=== PATIENT | female | born 1975 | race Caucasian/White ===

== ENCOUNTER → 2022-09-19 12:58 | Outpatient (CLI) | payer OTHER, SELFPAY ==
--- NOTE | ~2022-09-19 | MM_ITS ---
EXAMINATION: MM screening roe BI w pilar HISTORY: Screening mammogram TECHNIQUE: Craniocaudal and mediolateral oblique 3-D tomosynthesis images were obtained and synthetic 2-D images were generated. Bilateral rotated lateral CC views. CAD analysis was submitted and interp reted. COMPARISON: No prior mammogram is available for comparison at this institution. BREAST PARENCHYMAL COMPOSITION: The breasts are heterogeneously dense, which may obscure small masses . FINDINGS: There is no evidence of suspicious mass, calcification, or architectural distortion to sugg est malignancy in either breast. IMPRESSION: 1. No mammographic evidence of malignancy. 2. Recommend routine screening mammography in one year. BI-RADS Category 1: Negative Reviewed, dictated and finalized at location A.
== END ==
PROVIDERS: PCP Obstetrics & Gynecology; Visit Provider Obstetrics & Gynecology
DX: Z12.31 Encounter for screening mammogram for malignant neoplasm of breast (principal)
CPT/HCPCS: 77063; 77067

== ENCOUNTER 2023-02-09 13:24 | Outpatient (CLI) | payer OTHER, SELFPAY ==
--- NOTE | ~2023-02-09 | CT_ITS ---
EXAMINATION: CT abdomen pelvis wo con DATE: 02/09/2023 14:07 INDICATION: Right flank pain. Hematuria. TECHNIQUE: Computed tomography (CT) of the abdomen and pelvis was performed without intravenous contr ast. Automated exposure control and iterative reconstruction technique were employed. The dose-length product was 189.45 mGy-cm. COMPARISON: None. FINDINGS: The visualized portions of the lung bases are clear without pneumonia or pleural effusion. The heart size is normal. No pericardial effusion. There is a 10 mm cyst in the liver. The gallbladde r, spleen, pancreas, adrenal glands are normal. There is a 4 mm stone in right kidney. There are 2 st ones in left kidney measuring up to 3 mm. There is a 2.3 cm dominant follicle in right ovary. There a re no dilated loops of bowel. The appendix is not visualized. There are no pathologically enlarged ly mph nodes. There is no free intraperitoneal fluid. There is severe lumbar spondylosis. IMPRESSION: 1. Bilateral nonobstructing kidney stones. Reviewed, dictated and finalized at location A. MANAGER
== END 2023-02-09 13:25 | disposition home or self-care (01) ==
LOC: CHSIMG 13:27
PROVIDERS: PCP Internal Medicine; Visit Provider Internal Medicine
DX: R31.9 Hematuria, unspecified (principal); R10.9 Unspecified abdominal pain; N20.0 Calculus of kidney
CPT/HCPCS: 74176

== ENCOUNTER 2023-10-01 15:13 | Outpatient (CLI) | payer OTHER, SELFPAY ==
--- NOTE | ~2023-10-01 | XR_ITS ---
XR abdomen/kub 1V Ordering provider: Magda Llanos, QC MANAGER History: . hematuria with personal hx of kidney stones . Comparison: None. FINDINGS: BOWEL: Nonobstructive bowel gas pattern. ORGANOMEGALY: None. SIGNIFICANT PATHOLOGIC CALCIFICATIONS: None. OTHER: Narrowing of the disc L4-L5. No free air is seen under the diaphragm. IMPRESSION: NO ACUTE ABDOMINAL FINDINGS. Reviewed, dictated and finalized at location A.
--- NOTE | ~2023-10-01 | US_ITS ---
US retroperitoneal comp 10/01/2023 15:43 Procedure: Realtime transabdominal ultrasound of the kidneys and bladder. Indication: Kidney stones Comparison: No prior studies for comparison. Findings: Renal echotexture is normal bilaterally without hydronephrosis, contour deforming mass. The re are nonobstructing bilateral renal stones measuring 8 mm on the right and 5 mm on the left. The ri ght kidney measures 0.6 cm and left kidney measures 10.6 cm. Bladder within normal limits. Impression: 1: Nonobstructing bilateral nephrolithiasis. Reviewed, dictated and finalized at location B. Impression: 1: Nonobstructing bilateral nephrolithiasis.
== END 2023-10-01 15:14 ==
PROVIDERS: PCP Internal Medicine; Visit Provider Nurse Practitioner Family
DX: R31.9 Hematuria, unspecified (principal); N20.0 Calculus of kidney; Z87.442 Personal history of urinary calculi
CPT/HCPCS: 74018; 76770

== ENCOUNTER 2024-02-06 13:31 | Outpatient (CLI) | payer OTHER, SELFPAY ==
--- NOTE | ~2024-02-06 | MM_ITS ---
EXAMINATION: MM screening [facility] BI w pilar HISTORY: Screening TECHNIQUE: Craniocaudal and mediolateral oblique 3-D tomosynthesis images were obtained and synthetic 2-D images were generated. CAD analysis was submitted and interpreted. COMPARISON: 09/19/2022 BREAST PARENCHYMAL COMPOSITION: Not dense: There are scattered areas of fibroglandular density. FINDINGS: There are developing asymmetries in the upper outer quadrant of the left breast. No discret e mass identified. The right breast is stable without evidence for malignancy. IMPRESSION: 1. Developing left breast asymmetries. 2. Additional mammographic views and possible breast ultrasound are recommended. BI-RADS Category 0: Incomplete: Needs additional imaging evaluation. Reviewed, dictated and finalized at location B. ONE PROCESSOR IMPRESSION: 1. Developing left breast asymmetries. 2. Additional mammographic views and possible breast ultrasound are recommended . BI-RADS Category 0: Incomplete: Needs additional imaging evaluation.
== END 2024-02-06 13:32 | disposition home or self-care (01) ==
PROVIDERS: PCP Advanced Practice Midwife; Visit Provider Advanced Practice Midwife
DX: Z12.31 Encounter for screening mammogram for malignant neoplasm of breast (principal); R92.8 Other abnormal and inconclusive findings on diagnostic imaging of breast
CPT/HCPCS: 77063; 77067

== ENCOUNTER 2024-02-15 06:46 | Emergency (ER) | payer OTHER, SELFPAY ==
[2024-02-15] VITALS (11 sets, daily range): BP systolic 96–119; BP diastolic 64–73; PULSE 70–82; RESP 18; TEMP 36.8; O2SAT 93–100
--- NOTE | ~2024-02-15 | CT_ITS ---
EXAMINATION: CT abdomen pelvis w con DATE: 02/15/2024 08:19 INDICATION: Bilateral flank pain. Hematuria. TECHNIQUE: Computed tomography (CT) of the abdomen and pelvis was performed with 100 mL Omnipaque 350 intravenous contrast. Automated exposure control and iterative reconstruction technique were employe d. The dose-length product was 287.68 mGy-cm. COMPARISON: CT abdomen pelvis 02/09/2023 FINDINGS: The visualized portions of the lung bases demonstrate mild atelectasis. No pleural effusion . The heart size is normal. No pericardial effusion. There are cysts in the liver measuring up to 12 mm. The gallbladder, spleen, pancreas, adrenal glands, and left kidney are normal. There is a [address] one in right kidney. There are no dilated loops of bowel. The appendix is not visualized. There are n o pathologically enlarged lymph nodes. There is no free intraperitoneal fluid. There is a 2.2 cm [place] follicle in right ovary. There are no pathologically enlarged lymph nodes. There is no free intr aperitoneal fluid. There is severe degenerative disc disease at L4-L5. IMPRESSION: 1. No etiology for the patient's symptoms. Reviewed, dictated and finalized at location A. CULTURAL SCIENTIST
[2024-02-15 07:10] LABS: Basophils Percent Auto 0.5 % (0.2-1.2); Eosinophils Absolute Auto 0.1 K/mm3 (0-0.3); Hematocrit 38.2 % (37.0-47.0); Hemoglobin 12.5 g/dL (12.0-15.0); Immature Granulocyte Absolute 0.01 K/mm3 (0.00-0.031); Immature Granulocyte Percent A 0.2 % (0-0.5); Lymphocytes Absolute Auto 2.19 K/mm3 (0.9-3.2); Lymphocytes Percent Auto 33.4 % (18.3-44.2); Mean Corpuscular HGB Conc 32.7 g/dl (32-36); Mean Corpuscular Volume 94.8 fl (80-100); Mean Platelet Volume 10.2 fl (7.4-10.4); Monocytes Absolute Auto 0.5 K/mm3 (0.1-0.6); Monocytes Percent Auto 7.9 % (2.6-8.5); Neutrophils Absolute Auto 3.7 K/mm3 (1.3-6.7); Platelet Count Result 217 k/mm3 (150-375); Red Blood Count 4.03 M/mm3 (4.2-5.4); Red Cell Distribution Width 12.5 % (11.5-14.5); White Blood Count 6.6 K/mm3 (4.5-10.0)
[2024-02-15 07:21] LABS: Alanine Aminotransferase 19 U/L (6-35); Albumin Level 4.5 g/dL (3.5-5.1); Alkaline Phosphatase 69 U/L (38-126); Anion Gap 5 mmol/L (4-12); Aspartate Amino Transferase 25 U/L (14-36); Bilirubin,Total 0.4 mg/dL (0.2-1.3); Blood Urea Nitrogen 19 mg/dL (7-17); Carbon Dioxide 30 mmol/L (22-30); Chloride 106 mmol/L (98-107); Estimated CRCL calculation 75 ml/min; Estimated Glomerular Filt Rate > 60; Glucose 92 mg/dL (65-110); Lipase 141 U/L (23-300); Sodium 141 mmol/L (137-145)
[2024-02-15 07:27] LABS: Add Urine Microscopic? YES; Appearance Urine Clear (Clear); Bacteria Urine None Seen /hpf; Bilirubin Urine Negative (Negative); Blood Urine 1+ (Negative); Color Urine Yellow (Yellow); Glucose Urine UA Negative (Negative); Ketones Urine Negative (Negative); Leukocyte Esterase Ur 1+ LEU/UL (Negative); Need Manual Microscopic Reviewed; Nitrate Urine Negative (Negative); Non Pathogenic Casts 0-2; Protein Urine Negative (Negative); RBC Urine 0-2 /hpf (0-2); Specific Grav Ur 1.006 (1.001-1.035); Squamous Epithelial Cell Urine None Seen /hpf (Few); Urobilinogen Urine 0.2 mg/dL (<2.0)
--- NOTE | 2024-02-15 07:53 | ED_ITS ---
HPI - Abdominal Pain General Chief Complaint: Abdominal Pain Stated Complaint: i think i have kidney stones Time Seen by Provider: 02/15/24 07:51 Source: patient and family () Mode of arrival: ambulatory Limitations: no limitations History of Present Illness HPI narrative: Patient presents with bilateral flank pain of 3 days duration although right greater than left. She notes that the pain radiates into her abdomen towards her groin. The pain is occurring intermittently. She is concerned that she laxmi ht be having an issue with kidney stones that she had imaging previously that showed she had them present. In general, she states that she hurts all over. She was urine nauseated earlier when she was brushing her teeth although states that this resolved quickly. No vomiting. No fevers although she does have chills. Her last bowel movement was this morning and she notes that was loose but formed. No constipation or blood. She is amenorrheic as she had a hysterectomy with oophorectomy (unknown which side) 2017. She has been taking p.o. ketorolac for pain and she took a dose of this Sunday morning, evening, and this morning. She endorses dysuria, urgency, and frequency but denies any mariela/gross hematuria. PCP Dr Childs in [place]. Related Data Home Medications Medication Instructions Recorded Confirmed Saccharomyces boulardii 250 mg 250 mg PO BID 06/24/21 09/01/21 capsule (Daily Probiotic (S. boulardii)) fluticasone propionate 50 1 spray intranasal BID 06/24/21 09/01/21 mcg/actuation nasal spray,suspension levocetirizine 5 mg tablet (Xyzal) 5 mg PO DAILY 06/24/21 09/01/21 Allergies Allergy/AdvReac Type Severity Reaction Status Date / Time No Known Allergies Allergy Verified 09/01/21 10:59 [facility] Past Medical History Medical History (Updated 02/15/24 @ 10:18 by Kristine Elliott MD) Seasonal allergies Surgical History Surgical History H/O section H/O hysterectomy with oophorectomy 2017 Family History Family History Father Parkinsons disease Malignant neoplasm of prostate Grandparent Diabetes mellitus Depression Mother Endometrial cancer Cervical cancer Social History Social History (Updated 02/15/24 @ 10:23 by Kristine Elliott MD) Smoking status: Never smoker Alcohol intake: never Substance use: never Living arrangements: with family Additional living arrangements comments: Occupation/Education: occupation 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 HEAD: Normocephalic, atraumatic. EYES: Non injected, non icteric ENT: Nares clear, no rhinorrhea or epistaxis. NECK: Supple. CHEST: Speaking in full sentences. No respiratory distress. HEART: Regular rate and rhythm. . ABDOMEN: Soft, nondistended. No tenderness to palpation x4 quadrants. No rigidity or guarding. Not peritoneal. EXTREMITIES: Normal range of motion. No lower extremity edema. : Suprapubic tenderness to palpation. Mild CVA tenderness on the right. SKIN: Warm, dry, no rash. NEURO: No focal deficits. Alert and oriented x3. PSYCH: Normal mood and affect. Course Vital Signs Vital signs: Vital Signs Temperature 98.2 F 02/15/24 06:55 Pulse Rate 70 02/15/24 06:55 Respiratory Rate 18 02/15/24 06:55 Blood Pressure 119/67 02/15/24 06:55 Pulse Oximetry 100 02/15/24 06:55 Oxygen Delivery Room Air 02/15/24 06:55 Temperature 98.2 F 02/15/24 06:55 Pulse Rate 82 02/15/24 09:30 Respiratory Rate 18 02/15/24 09:30 Blood Pressure 96/64 L 02/15/24 09:30 Pulse Oximetry 100 02/15/24 09:30 Oxygen Delivery Room Air 02/15/24 06:55 MDM - Abdominal Pain MDM Narrative Medical decision making narrative: Patient presents with flank pain of 3 days duration radiating into her abdomen and groin. In the emergency department they are afebrile with vital signs within normal limits. Urinalysis with hematuria although no other signs of infection. However She has suprapubic tenderness to palpation and right CVA tenderness on exam and endorses dysuria, urgency, and frequency. Patient reassessed at approximately 10:20 a.m. and she states she is feeling much better with pain improved. No evidence of stone in the ureter seen on imaging although there is 1 that is nonobstructing in the right kidney. Given constellation of symptoms, physical exam, and labs, reasonable to treat as pyelonephritis despite no bacteriuria. Patient given 1st dose of antibiotic in the emergency department with the rest of the course prescribed. She is advised follow-up with primary care physician and return to the emergency department with any new or worsening symptoms. Also prescribed acetaminophen which she can supplement with the ketorolac she is already taking. Differential Diagnosis Differential diagnosis: Likely abdominal pain, calculus of kidney, di verticulitis, endometriosis and other (Urinary tract infection, pyelonephritis) Medical Records Attestation: I reviewed the patient's medical records. Medical records narrative: Previous imaging showed bilateral nonobstructing renal calculi Lab Data Attestation: I reviewed the patient's lab results. 02/15/24 07:04 02/15/24 07:04 Labs: Lab Results 02/15/24 Range/Units 07:04 WBC 6.6 (4.5-10.0) K/mm3 RBC 4.03 L (4.2-5.4) M/mm3 Hgb 12.5 (12.0-15.0) g/dL Hct 38.2 (37.0-47.0) % MCV 94.8 (80-100) fl MCH 31.0 (26-34) pg MCHC 32.7 (32-36) g/dl RDW 12.5 (11.5-14.5) % Plt Count 217 (150-375) k/mm3 MPV 10.2 (7.4-10.4) fl Immature Gran % (Auto) 0.2 (0-0.5) % Neut % (Auto) 56.0 (45.5-73.1) % Lymph % (Auto) 33.4 (18.3-44.2) % [place] % (Auto) 7.9 (2.6-8.5) % Eos % (Auto) 2.0 (0-4.4) % Baso % (Auto) 0.5 (0.2-1.2) % Lymph # (Auto) 2.19 (0.9-3.2) K/mm3 [place] # (Auto) 0.5 (0.1-0.6) K/mm3 Eos # (Auto) 0.1 (0-0.3) K/mm3 Baso # (Auto) 0.0 (0.0-0.1) K/mm3 Abs Immat Gran (auto) 0.01 (0.00-0.031) K/mm3 Absolute Neuts (auto) 3.7 (1.3-6.7) K/mm3 Absolute Nucleated RBC 0.000 (0.0-0.012) K/mm3 Nucleated RBC % 0.0 (0.0-0.2) % Sodium 141 (137-145) mmol/L Potassium 4.0 (3.4-5.0) mmol/L Chloride 106 (98-107) mmol/L Carbon Dioxide 30 (22-30) mmol/L Anion Gap 5 (4-12) mmol/L BUN 19 H (7-17) mg/dL Creatinine 0.70 (0.7-1.0) mg/dL Estim Creat Clear Calc 75 ml/min Estimated GFR > 60 (59 - ) Glucose 92 (65-110) mg/dL Calcium 9.0 (8.4-10.2) mg/dL Total Bilirubin 0.4 (0.2-1.3) mg/dL AST 25 (14-36) U/L ALT 19 (6-35) U/L Alkaline Phosphatase 69 (38-126) U/L Total Protein 8.0 (6.3-8.2) g/dL Albumin 4.5 (3.5-5.1) g/dL Lipase 141 (23-300) U/L Urine Color Yellow (Yellow) Urine Appearance Clear (Clear) Urine pH 6.0 (5.0-9.0) Ur Specific [place] 1.006 (1.001-1.035) Urine Protein Negative (Negative) mg/dL Urine Glucose (UA) Negative (Negative) mg/dL Urine Ketones Negative (Negative) mg/dL Ur Blood (Man) 1+ H (Negative) Urine Nitrate Negative (Negative) Urine Bilirubin Negative (Negative) Urine Urobilinogen 0.2 (<2.0) mg/dL Add Ur Microanalysis Reviewed Leukocyte Esterase Rfl 1+ H (Negative) SUELLEN/UL Urine RBC 0-2 (0-2) /hpf Urine WBC 11-20 H (0-3) /hpf Ur Squamous Epith Cells None seen (Few) /hpf Urine Bacteria None seen /hpf Urine Casts 0-2 Imaging Data Radiologist's impression: ITS Impressions Abdomen/Pelvis CT 02/15/24 08:52 IMPRESSION: 1. No etiology for the patient's symptoms. Discharge Plan Discharge Clinical Impression: Flank pain, Microscopic hematuria, Symptomatic urinary tract infection Patient Disposition: Home, Self-Care Condition: Stable Instructions: Antibiotic Form, Urinary Tract Infection in Women (DC), Kidney Infection (ED), Flank Pain (ED) Additional Instructions: There is a 4 mm stone in right kidney but , as we discussed, this usually doesn't cause greco based on the location. Given you are having symptoms consistent with urinary tract infection and had some tenderness with palpation of the bladder and with percussing/tapping on your right kidney, reasonable to treat for urinary tract infection that has ascended to your kidney known as pyelonephritis/kidney infection. You received your 1st dose of antibiotic in the emergency department with the rest of the course prescribed. You will be notified if based on the urine culture this antibiotic regimen needs to be changed. You can continue to use the ketorolac your prescribed previously and this is safe to take with acetaminophen/Tylenol (maximum 4000mg/day of the latter). Follow-up with your primary care physician. Return to the emergency department any new or worsening symptoms such as intractable nausea/vomiting, intractable pain not responding to the medications prescribed, fever >100.4F, etc. Prescriptions: New sulfamethoxazole-trimethoprim 800-160 mg tablet 1 tablet PO Q12H 14 Days Qty: 27 0RF Rx Instructions: start 12/6 PM (received first dose in ED 126 AM) acetaminophen 500 mg capsule 1,000 mg PO Q6H PRN (Reason: pain) Qty: 20 0RF acetaminophen 500 mg capsule 1,000 mg PO Q6H PRN (Reason: pain) Qty: 30 0RF sulfamethoxazole-trimethoprim [Bactrim DS] 800-160 mg tablet 1 tablet PO Q12H 14 Days Qty: 27 0RF Rx Instructions: Received 1st dose in the emergency department 02/15/2024 a.m. No Action levocetirizine [Xyzal] 5 mg tablet 5 mg PO DAILY Saccharomyces boulardii [Daily Probiotic (S. boulardii)] 250 mg capsule 250 mg PO BID fluticasone propionate 50 mcg/actuation spray,suspension 1 spray intranasal BID Rx Instructions: administer into each nostril methylprednisolone [Medrol (Chad)] 4 mg tablets,dose pack See Rx Instructions PO PER PKG DIR Qty: 21 0RF Rx Instructions: PO PER PKG DIR Follow-up/Referrals: Teresa,Jolene Osborn CNM [Primary Care Provider] - Stand Alone Forms: Work/School Release IP Time of Disposition: 10:26
[2024-02-15] MEDS: MORPHINE SULFATE (*CRX) 4 MG/ML INJ IV PUSH (08:26)
[2024-02-15] MEDS: SULFAMETHOXAZOLE/TRIMETHOPRIM 800/160 MG DS TABLET 1 TAB PO (10:33)
== END 2024-02-15 12:13 | disposition home or self-care (01) ==
PROVIDERS: Emergency Medicine; Emergency Provider Student in an Organized Health Care Education/Training Program; PCP Advanced Practice Midwife
DX: R10.9 Unspecified abdominal pain (principal); R31.29 Other microscopic hematuria; N39.0 Urinary tract infection, site not specified; Z90.710 Acquired absence of both cervix and uterus
CPT/HCPCS: 36415; 74177; 80053; 81001; 83690; 85025; 87086; 96374; 99284; A9270; J2270; Q9967

== ENCOUNTER 2024-06-11 08:06 | Outpatient (CLI) | payer OTHER, SELFPAY ==
--- OUTSIDE RECORDS SUMMARY | 2024-06-11 08:24 | XMS_ITS | Data Portability ---
Author Organization [employer] Your Policy ManagerAngelica in Office Address [address] [place] [address] Assessment Encounter Date Assessment Date Assessment LastModified by Organization Details LastModified Time 04/23/2024 04/23/2024 I spent 43 minutes of bils-ov-uhvv counselling and care coordination time with the patient. This includes reviewing medical records (medical, surgical, family and social history); updating medication and allergy information in the electronic health record; and ordering labs, medications, and education materials to continue patient care. [email or web address] Not available 04/23/2024 15:52:50 05/21/2024 05/21/2024 I spent 21 minutes of nqke-cw-xqgm counselling and care coordination time with the patient. This includes reviewing medical records (medical, surgical, family and social history); updating medication and allergy information in the electronic health record; and ordering labs, medications, and education materials to continue patient care. Not available 05/21/2024 15:51:50 06/09/2024 06/09/2024 I spent 38 minutes of dlfi-jv-shgx counselling and care coordination time with the patient. This includes reviewing medical records (medical, surgical, family and social history); updating medication and allergy information in the electronic health record; and ordering labs, medications, and education materials to continue patient care. Not available 06/09/2024 11:39:58 Plan of Treatment Reminders Order Date Submit Date Provider Last Modified By Organization Details Last Modified Time Details Appointments [id number] 2024 07:30A M NESTOR CLAYTON NP Not available Not available Not available Lab FSH (follicle -stimulat ing hormone), serum 2024 025 [facility] (Lab), [address] [place], [address], 06/09/2024 11:40:45 estradiol , serum 2024 025 [facility] (Lab), [address] [place], [address], 06/09/2024 11:40:45 anti-mark erian hormone (amh), serum 2024 025 [facility] (Lab), [address] [place], [address], 06/09/2024 11:40:45 vitamin D, 25-hydrox y, total, serum 2024 [facility] (Lab), [address] [place], [address], 06/09/2024 11:40:45 iron + TIBC + ferritin, serum 2024 025 [facility] (Lab), [address] [place], [address], 06/09/2024 11:40:44 TSH + free T4, serum 2024 025 [facility] (Lab), [address] [place], [address], 06/09/2024 11:40:44 CBC w/ auto diff 2024 025 [facility] (Lab), [address] [place], [address], 06/09/2024 11:40:45 CMP, serum or plasma 2024 025 [facility] (Lab), [address] [place], [address], 06/09/2024 11:40:45 urinalysi s complete, reflex culture 2024 025 [facility] (Lab), [address] [place], [address], 06/09/2024 11:40:45 Referral None recorded. Procedures None recorded. Surgeries None recorded. Imaging None recorded. Medication Orders Magnesium Glycinate MIDI 2024 025 [email or web address] Not available 06/09/2024 15:21:15 estradiol 0.025 mg/24 hr semiweekl y transderm al patch 2024 025 [facility] #[id number], [address] [place], [address], 04/23/2024 15:34:28 Patient TargetsNo targets recorded. Patient Instructions Encounter Date Encounter Id Patient Instructions Last Modified By Organization Details Last Modified Time 04/23/2024 [id number] Any requested follow-up visits are listed below in the Plan of Care section. Go directly to the [facility] stage set designer at [email or web address] to book a time. Not available 04/23/2024 10:28:32 It was a pleasur e to meet with you today! We discussed your health concerns related to menopause, including brain fog, weight gain, mild hot flashes, mood changes, and difficulty sleeping. --------- Your Care Plan --------- Together, we decided that you would: - Start using an estrogen patch (0.025) on your lower abdomen, changing it twice a week. This is a bioidentical hormone replacement therapy that should help alleviate your menopausal symptoms. The patch is small and should be applied to your lower abdomen. It is absorbed directly into the bloodstream and has been shown in studies to not increase the risk of blood clotting in the general population. - Continue drinking 100 ounces of water every day. This will help with brain fog and also prevent kidney stones from forming. - Aim for 30 minutes of movement each day. Exercise is beneficial for overall health and can help improve brain fog. - Follow-up appointment scheduled for May 21 at 2:30 pm. We will review your progress and adjust treatment as needed. - Breast tenderness, headaches, nausea, vaginal bleeding, and lightheadedness are potential side effects of the estrogen patch and while they are usually non-concerning and go away as your body adjusts to the hormones, it's important to monitor them. - If your symptoms worsen or do not improve, please return to the clinic or seek immediate medical attention. - Please contact your clinician if you have any questions, concerns, worsening or unexpected symptoms by using the patient portal. Please carefully review the care plan we have decided upon, specific information regarding your medication, and important details about your treatment detailed above. HRT Today we reviewed options for treating common symptoms of menopause. These options include hormonal medications, non hormonal medications, integrative therapies and lifestyle modifications. Menopause symptoms vary from woman to woman. Some women get no symptoms, but others have many. Intensity and duration also vary and can last on average 5-10 years. HRT may help with many menopausal symptoms. It is FDA approved for the treatment of hot flashes, vaginal symptoms, osteoporosis, and for those in early or premature menopause. HRT is associated with relief of symptoms and improvement in bone health. When started close to the age of menopause, HRT reduces cardiovascular risk and has potential benefits for cognitive health. Here are the latest recommendations from the Menopause Society: https://menopause.o rg/patient-educatio n/menopause-topics/ hormone-therapy Hormone therapy most often involves the combination of estrogen and progestogen. As with any drug there are some potential risks associated with hormone therapy. There are concerns of associated health risks with HRT including risks related to breast cancer, uterine cancer, gallbladder disease, and dementia. Many of these concerns are related to older types of hormones that are no longer recommended today and some of these concerns differ depending on the component of hormones (i.e., estrogen vs progestogen) and the mode of delivery. Some studies have suggested that some types of HRT may increase the risk of heart attack, stroke, and blood clots. If you develop chest pain, difficulty breathing, or symptoms suggestive of a stroke please seek care immediately. Today we reviewed your personal history including specific risks and benefits of hormone therapy for you. Based on this shared decision making, we recommend HRT to you as a reasonable and helpful therapy. If you have additional questions related to health risks associated with HRT, please discuss with your clinician. Please know that HRT requires fine-tuning and an individualized approach. We ll plan to adjust your therapy if needed to address your symptoms. We will meet in 4-6 weeks to check in about your new regimen. Please reach out if you need to meet sooner. Thank you for trusting us with your care! Kindly, Ayla Clayton APRN Not available 04/23/2024 15:57:54 05/21/2024 [id number] Any requested follow-up visits are listed below in the Plan of Care section. Go directly to the [employer] stage set designer at [email or web address] to book a time. Not available 05/20/2024 12:56:42 It was a pleasur e to see you again today, Trudy! We discussed your health concerns related to menopause, including hot flashes, night sweats, and sleep disturbances. --------- Your Care Plan --------- Together, we decided that you would: - Continue using the estradiol patch. You've reported some improvement in your symptoms, which is great news. Remember, it can take up to three months to experience full relief. We started you on the lowest dose to minimize side effects, and we can always increase it if needed for further symptom relief. Please continue to monitor for side effects such as breast tenderness, headaches, nausea, and lightheadedness. If these persist or worsen, please let me know. - Keep a symptom diary. Pay close attention to the hot flashes, night sweats, mood swings, and lightheadedness. This will help us understand how your symptoms are progressing and whether we need to adjust your treatment. - Schedule a follow-up appointment on Sunday, July 16 at 2:30 PM. We will review your symptom diary and decide whether to adjust the dosage of your estradiol patch. - Plan to have your annual blood work done with your primary care provider this summer. This is important to ensure we're not overlooking any other conditions, such as hypothyroidism or high cholesterol. -Upload your pathology report related to hysterectomy to the portal for further review. Please carefully review the care plan we have decided upon, specific information regarding your medication, and important details about your treatment detailed above. Thank you for trusting us with your care! Kindly, Ayla Clayton APRN Not available 05/21/2024 15:53:09 06/09/2024 [id number] Any requested follow-up visits are listed below in the Plan of Care section. Go directly to the [employer] stage set designer at [email or web address] to book a time. Not available 06/09/2024 08:37:33 It was a pleasur e to meet with you today! We discussed your recent experiences with severe stress, anxiety, and potential hormonal imbalances. You mentioned that you have been on estradiol and recently started fluoxetine (Prozac) 20 mg, but have been experiencing significant mood disturbances, sleep issues, and physical symptoms such as night sweats and hot flashes. You also have a history of trauma and are currently in a high-stress work environment. --------- Your Care Plan --------- Together, we decided that you would: - Obtain a copy of your recent lab results from your primary care physician and upload them to the patient portal. - Obtain a copy of your hysterectomy pathology report and upload it to the patient portal. - Continue taking fluoxetine (Prozac) 20 mg daily as prescribed by your primary care physician. - Schedule and attend a follow-up appointment on July 14 at 9:30 AM to review lab results and assess your progress on fluoxetine. - Consider natural supplements such as high doses of omega-3 with more EPA than DHA, and magnesium glycinate at night before bed to support mood and sleep. - Recommendations will be sent to you via [employer]. - [facility] to address stress and anxiety. - Read The Worry Trick by a [place] psychologist to help manage intrusive thoughts and anxiety. - I will contact Dr. Baron's office at [phone] and speak with Khalida, his nurse, to inform them of your current situation regarding perimenopause. - Go to [facility] in [place], [place], to have the following blood work drawn: Thyroid panel, Vitamin D, Vitamin B, and hormone levels. - Consider trying a higher dose of the estradiol patch in the future if symptoms persist, but only after discussing it with your clinician and feeling comfortable with the decision. - Stay hydrated and manage stress to help prevent kidney stones. - Contact your clinician if you have any questions, concerns, worsening or unexpected symptoms by using the patient portal. Please carefully review the care plan we have decided upon, specific information regarding your medication, and important details about your treatment detailed below. Magnesium: - Supplementation with magnesium may help with sleep, muscle tension, constipation, and blood pressure. - Start with 1-2 capsules, as directed by clinician, 30-60 min prior to bedtime. - Get it through [facility], our partner pharmacy. Look out for an email to buy your expert recommended product in a few clicks. Yampa 3s (fish oil): - Helpful for mood support.1000 mg of EPA daily take 2 caps by mouth daily. - Get it through [facility], our partner pharmacy. Look out for an email to buy your expert recommended product in a few clicks. - Take with food (ideally a healthy fat) for better absorption. Thank you for trusting us with your care! Kindly, Ayla Clayton APRN Not available 06/09/2024 11:50:47 Reason for Referral None Reported. Problems Name Problem SNOMED Code Status Onset Date Resolution Date Notes Provider Name and Address Organization Details Recorded Time History of calculus of kidney 308821453 Active 2024 [place] [address] [place], [address], [facility] 5 10:29:03 Hyperlipid emia 37449921 Active 2024 [place] [address] [place], [address], [facility] 5 10:29:08 Oophorecto my Active 2024, Right oophorecto my due to ovarian mass , NEGATIVE pathology per patient, pt stated pathology report [place] [address] [place], [address], [facility] 5 11:39:26 Hysterecto my Active 2024 2019, hyst due to mass / pt only has LEFT ovary , NEGATIVE pathology per patient. Pathology [place] [address] [place], [address], [facility] 5 11:39:06 Clouded consciousn ess 91604108 Active 2024 [place] [address] [place], [address], [facility] 5 15:27:58 Menopausal symptom 78518484 Active 2024 [place] [address] [place], [address], [facility] 5 15:33:24 Hyperchole sterolemia 15387666 Active 2024 [place] [address] [place], [address], [facility] 5 15:39:10 Vitamin D deficiency 24477665 Active 2024 [place] [address] [place], [address], [facility] 5 09:33:54 Anxiety 58613038 Active 2024 [place] [address] [address] [place], [address] [place] [address] 2, [facility] 5 09:41:11 Sleep pattern disturbanc e 99689744 Active 2024 [place] [address] [place] [address], [facility] 5 11:32:50 Notes:Pt stated [facility] RIDER retir ed, will try to gain access to previous pathology report. Problem Notes None recorded. Procedures Surgical History Date Name Laterality Status Provider Name and Address Organization Details Recorded Time 4 Date of Last Mammogram [place], [address], [facility] 04/23/2024 15:04:35 4 Date of Last Pap Smear [place], [address], [facility] 04/23/2024 15:04:35 0 Date of Last Colonoscopy [place], [address], [facility] 04/23/2024 15:04:35 delivery [place], [address], [facility] 04/23/2024 15:06:13 lithotripsy [place], [address], [facility] 04/23/2024 15:08:33 Imaging Results None recorded. Procedure Notes None recorded. Medical Equipment None Reported. Allergies Allergen ID Allergen Name Allergen Category Reaction Reaction Severity Criticality Documentation Date Start Date Code Code System Note Provider Name and Address Organization Details Recorded Time 050914 house dust allergeni c extract environme nt,medica tion Not available Not available Not available 04/23/2024 30403 9 RxNorm Not Available Not Available Not Available 900830 ragweed pollen environme nt Not available Not available Not available 04/23/2024 04826 UNK Not Available Not Available Not Available 845344 mold extract environme nt Not available Not available Not available 04/23/2024 82104 8 RxNorm Not Available Not Available Not Available Medications Name Sig Start Date Stop Date Status Note LastModified by Organization Details LastModified Time Magnesium Glycinate MIDI Order through [employer] 2024 active Not Available Not Available Not Avai lable estradiol 0.025 mg/24 hr semiweekly transdermal patch Apply 1 patch twice a week by transdermal route. 2024 active Not Available Not Available Not Avai lable nutritional supplements active Not Available Not Available Not Available fluoxetine 20 mg once daily per PCP active Not Available Not Available No t Available Xyzal active Not Available Not Availa ble Not Available Vitals Date Recorded Body height Body mass index (BMI) Body weight Provider Name and Address Organization Details Last Updated DateTime 04/23/2024 167.64 cm 24.4 kg/m2 40130.45 [place] [address] [place], [address], [facility] 04/23/2024 10:28:45 Social History None recorded. Functional Status None recorded. Mental Status None recorded. Family History Relationship Description Onset Age of this Age Resolved Age Notes LastModified by Organization Details LastModified Time Maternal Grandmother Malignant tumor of breast 70 Not available 04/23 15:10:09 Maternal Grandfather Heart disease Not available 04/23 15:04:23 Paternal Grandfather Heart disease Not available 04/23 15:04:23 Mother Malignant tumor of vagina 44 44 Not available 04/23 15:10:36 Father Parkinson's disease 76 [id number] Not available 2024 08:36:22 Father Dementia [id number] Not available 06/09/2024 08:36:22 Medical History No medical history recorded. Gynecological History Statement/Question Response Date of Last Mammogram 12/11/2023 Date of Last Colonoscopy 09/10/2019 Date of LMP 01/10/2019 Date of Last Pap Smear 09/09/2023 Current Control Method Hysterectom y Approximate Hormone Replacement Therapy Yes Obstetrics History GPAL:G 2 P 0 0 0 2 Type Value Living 2 Total 2 Past Encounters Encounter ID Performer Location Encounter Start Date Encounter Closed Date Diagnosis/Indication Diagnosis SNOMED-CT Code Diagnosis ICD10 Code Diagnosis Note [id number] NESTOR CLAYTON NP Main Office [address] [place] [address] 04/23/2024 14:19:20 04/25/2024 04:25:41 Menopausal symptom 96456955 N95.1 - Patient experienci ng weight gain, mild hot flashes, mood changes, and difficulty sleeping.- Symptoms began post-hyste rectomy and have worsened over the past year.- Educated patient on hormone replacemen t therapy (HRT) with bioidentic al estrogen patches. History of hyst no need for endometria l protection .- Discussed the safety and efficacy of transderma l estrogen, emphasizin g no increased risk of breast cancer with estrogen alone.- Initiated estradiol patch 0.025 mg twice weekly, to be applied to the lower abdomen.- Advised on potential side effects: breast tenderness , headaches, nausea, vaginal bleeding, and lightheade dness.- Recommende d supportive measures: 100 ounces of water daily, vitamin B-complex, omega-3 supplement s, and regular exercise.- Follow-up scheduled in 4 weeks on May 21 at 2:30 PM to assess symptom relief and potential dose adjustment . HRTThe patient is experienci ng significan t symptoms related to hormonal changes that impact their quality of life and ability to function profession ally and/or personally . We reviewed lifestyle modificati ons, integrativ e therapies, hormonal options as well as other medication s used to treat common menopausal symptoms. Pt was informed that, as with any drug, there are some potential risks associated with HRT. We discussed that some types of HRT may increase the risk of heart attack, stroke, and blood clots. Patient is counseled on concerning signs and symptoms and instructed to immediatel y seek care if these develop. We discussed potential health risks that may be associated with HRT including risks related to breast cancer, uterine cancer, gallbladde r disease, dementia and others. Many of these concerns are related to older types of hormones that are no longer recommende d today and some of these concerns differ depending on the component of hormones (estrogen vs progestero ne) and the mode of delivery. After review of the potential benefits of HRT, the alternativ es and the risks of therapy this patient prefers a trial of HRT. Based on this shared decision making HRT therapy will be offered. Clouded consciousness 40 326631 R41.0 - Patient reports brain fog and decreased cognitive function, exacerbate d by poor sleep and high stress levels.- Educated on the relationsh ip between sleep quality and cognitive function.- Recommende d lifestyle modificati ons: increased water intake, regular exercise, stress management techniques (meditatio n, spending time with family, nature walks).- Initiated estradiol patch therapy to improve sleep and cognitive function.- Advised on the potential benefits of vitamin B-complex and omega-3 supplement s for cognitive support.- Follow-up in 4 weeks to evaluate improvemen t in cognitive symptoms. Health edu cation given 675750500 Z71.9 - Provided comprehens doe education on hormone replacemen t therapy, including risks, benefits, and side effects.- Discussed the importance of hydration, exercise, and nutritiona l supplement s in managing menopausal symptoms and cognitive function.- Educated on the safety of bioidentic al hormones and the lack of increased breast cancer risk with estrogen alone.- Patient expressed understand ing and agreement with the treatment plan.- Scheduled follow-up appointmen t for May 21 at 2:30 PM to reassess symptoms and treatment efficacy. History of hysterectomy [id number] Z90.711 - Patient had a hysterecto my in 2019 due to a benign mass, with the left ovary remaining intact.- No history of pre-cancer ous or cancerous pathology. - Reviewed patient's surgical history and confirmed no contraindi cations to hormone therapy.- Continued monitoring for any new symptoms or complicati ons related to the hysterecto my. [id number] NESTOR CLAYTON NP Main Office [address] [place] [address] 05/21/2024 14:45:29 05/22/2024 04:15:02 Health education given [id number] Z71.9 - Educated patient on the potential side effects of estradiol, including lightheade dness.- Discussed the importance of monitoring symptoms and side effects through a symptom diary.- Emphasized the need for regular follow-up to assess the effectiven ess of the treatment and make necessary adjustment s.- Patient understand s and agrees with the treatment plan. Menopausal symptom 81006 002 N95.1 - Patient reports improvemen t in night sweats and hot flashes since starting estradiol patch, with symptoms being less intense and less frequent.- No breast tenderness , headaches, or nausea reported. However, patient experience s lightheade dness, which is a known side effect of estradiol. - Educated patient that full relief may take up to three months and that the current low dose helps minimize side effects.- Advised patient to keep a symptom diary to monitor hot flashes, night sweats, mood swings, and lightheade dness.- [facility] at 2:30 PM to reassess symptoms and decide on potential titration of estradiol patch. History of hysterectomy [id number] Z90.711 - No current issues related to the hysterecto my reported.- Advised patient to upload any available pathology reports for review.- No history of pre-cancer ous or cancerous pathology. - Reviewed patient's surgical history and confirmed no contraindi cations to hormone therapy.- Continued monitoring for any new symptoms or complicati ons related to the hysterecto my. Hypercholesterolemia 136 35204 E78.00 - Patient has a history of hyperchole sterolemia , managed with lifestyle modificati ons.- No current medication for hyperchole sterolemia as per patient's preference and primary care physician' s guidance.- Discussed the importance of regular monitoring and management of cholestero l levels.- Patient plans to have annual blood work done with primary care physician in the summer. [id number] NESTOR CLAYTON NP Main Office [address] [place] [address] 06/09/2024 08:36:21 06/10/2024 04:13:23 Menopausal symptom [id number] N95.1 - Experienci ng exacerbate d mood changes, hot flashes, and night sweats while on low-dose transderma l estradiol; symptoms improved after discontinu ing the patch.- Ordered labs including hormone panel to establish current levels post-patch removal.- No hormone therapy at present; may consider higher-dos e transderma l estradiol or herbal alternativ es (Siberian rhubarb) Estrovera if future symptoms warrant.- Recommende d magnesium glycinate at bedtime and high-EPA omega-3 supplement ation as supportive measures. Yampa-3 recommenda tion sent merry FullScript .- Scheduled follow-up in [place] [address] 6 weeks to review labs and clinical status. Vitamin D deficiency [id number] E55.9 - Will measure serum vitamin D through [facility] in [place], [place].- Will determine need for supplement ation after reviewing lab results. Anxiety [id number] F41.9 - Currently on fluoxetine 20 mg daily; therapy initiated 10 days ago.- Reports improved mood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
--- OUTSIDE RECORDS SUMMARY | 2024-06-11 08:24 | XMS_ITS | Encounter Summary ---
Author Organization [facility] Address [facility] [place] [address] Care Team Providers Care Spline Rolling Machine Job Setter Name Role Phone Erlinda Alvarado NP Primary Care Provider [phone] ChaneyNiesha Unavailable [phone] Raul Cary MD Primary Care Provider Emerald vailable None, Provider Primary Care Provider Unavaila Mynor Marshall MD Primary Care Provider [phone] Encounter Details Date Type Department Care Team (Late st Contact Info) Description 02/13/2020 Wongat Message Enc [facility] Family Medicine - [place] [address] [place] [address] Erlinda Alvarado, LIEUTENANT/DEPUTY [address] [address] RE: Test Results Social History Tobacco Use Types Packs/Day Years Used Date Smoking Tobacco: Never Smokeless Tobacco: Never Alcohol Use Standard Drinks/Week Comments Yes 1.7 (1 standard drink = 0.6 oz p ure alcohol) socially AUDIT-C Answer Date Recorded Frequency of Alcohol Consumption Monthly or less 09/09/2019 Average Number of Drinks Not on file 020 Frequency of Binge Drinking Not on file 08/12 PHQ-2 Answer Date Recorded PHQ-2 Score - If the patient scores above 3, please move on to questions 3-9 0 09/09/2019 Comments No Sex and Gender Information Value Date Recorded Sex Assigned at Female 06/10/2024 9:09 AM CDT Legal Sex Female 7:01 PM CDT Gender Identity Female 06/10/2024 9:09 AM CDT Sexual Orientation Not on file COVID-19 Exposure Response Date Recorded In the last month, have you been in contact with someone who was confirmed or suspected to have Coronavirus / COVID-19? Yes 01/23/2020 1:42 PM DEPUTY [place] MARSH[place] documented as of this encounter Plan of Treatment Upcoming Encounters Date Type Department Care Team (Late st Contact Info) Description 07/02/2024 9:40 AM CDT Office Visit [facility] Urology - [place] [address] [place] [address] Yesika Monae MD [address] [place] [address] documented as of this encounter Visit Diagnoses Not on filedocumented in this encounter Care Teams Spline Rolling Machine Job Setter Relationship Specialty Start Date End Date Erlinda Alvarado NP PCP - General NURSE PRACTITIONER 09/09/19 04/01/21 Niesha Chaney APNP [address] [facility] [place] [address] PCP - Obstetrics/Gynecology Nurse Practitioner Women's Health 12/21/20 Raul Cary MD [address] [place] [address] PCP - General FAMILY PRACTICE 04/02/21 08/24/21 None, MD Odalys PCP - General 08/25/21 04/15/24 Mynor Baron MD [address] [place] [address] PCP - General INTERNAL MEDICINE 04/16/24 documented as of this encounter
--- OUTSIDE RECORDS SUMMARY | 2024-06-11 08:24 | XMS_ITS | Encounter Summary ---
Author Organization [facility] Address [address] [place] [address] Care Team Providers Care Fundraising Sale Representative Name Role Phone Erlinda Alvarado NP Primary Care Provider [phone] Niesha Chaney Unavailable [phone] Raul Cary MD Primary Care Provider Emerald vailable None, Provider Primary Care Provider Unavaila Mynor Marshall MD Primary Care Provider [phone] Encounter Details Date Type Department Care Team (Late st Contact Info) Description 10/31/2020 MyChart Message Enc [facility] Family Medicine - [place] [address] [place] [address] Jo Elaine NP [address] [place] [address] Question Social History Tobacco Use Types Packs/Day Years [...] AM CDT Sexual Orientation Not on file documented as of this encounter Plan of Treatment Upcoming Encounters Date Type Department Care Team (Late st Contact Info) Description 07/02/2024 9:40 AM CDT Office Visit [facility] Urology [facility] [address] [place] [id number] Yesika Monae MD [address] [place], [place] [id number] documented as of this encounter Visit Diagnoses Not on filedocumented in this encounter Care Teams Fundraising Sale Representative Relationship Specialty Start Date End Date Erlinda Alvarado NP PCP - General NURSE PRACTITIONER 09/09/19 04/01/21 Niesha Chaney APNP [address] [place] [address] PCP - Obstetrics/Gynecology Nurse Practitioner Women's Health 12/21/20 Raul Cary MD [address] [place] [address] PCP - General FAMILY PRACTICE 04/02/21 08/24/21 None, MD Odalys PCP - General 08/25/21 04/15/24 Mynor Baron MD [address] [place] [address] PCP - General INTERNAL MEDICINE 04/16/24 documented as of this encounter
--- OUTSIDE RECORDS SUMMARY | 2024-06-11 08:24 | XMS_ITS | Encounter Summary ---
Author Organization [facility] Address [facility] [place] [address] Care Team Providers Care Meat Hostess Name Role Phone Niesha Chaney Unavailable [phone] Mynor Baron MD Primary Care Provider [phone] Reason for Visit * Reason Onset Date Comments Results 06/10/2024 Encounter Details Date Type Department Care Team (Late st Contact Info) Description 06/10/2024 Telephone [facility] Urology - [place] [address] [place] [address] Anjali Barnes APNP [address] [place] [address] Results Social History Tobacco Use Types Packs/Day [...] on file 08/12 PHQ-2 Answer Date Recorded Patient Health Questionnaire-2 Score 0 06/10/2024 Comments No Sex and Gender Information Value Date Recorded Sex Assigned at Female 06/10/2024 9:09 AM CDT Legal Sex Female 7:01 PM CDT Gender Identity Female 06/10/2024 9:09 AM CDT Sexual Orientation Not on file documented as of this encounter Progress Notes * Corrie Fung, RTR - 06/10/2024 2:17 PM CDT Order faxed to [facility]. Records requested from [facility] in [place], they are faxing. * GINGER Garcia - 06/10/2024 11:09 AM CDT Please request copy of her previous CT completed at [facility] in [place]. Order 24 hour [facility] documented in this encounter Plan of Treatment Upcoming Encounters Date Type Department Care Team (Late st Contact Info) Description 07/02/2024 9:40 AM CDT Office Visit [facility] Urology - [place] [address] [place] [address] Yesika Monae MD [address] [place] [address] documented as of this encounter Visit Diagnoses Not on filedocumented in this encounter Additional Health Concerns Assessment Noted Time PHQ-9 Depression Total Score: 0 01/25/20 21 1:51 PM MANUFACTURING PROJECT ENGINEER documented as of this encounter Care Teams Meat Hostess Relationship Specialty Start Date End Date Niesha Chaney APNP [address] [place] [address] PCP - Obstetrics/Gynecology Nurse Practitioner Women's Health 12/21/20 Mynor Baron MD [address] [place] [id number] PCP - General INTERNAL MEDICINE 04/16/24 documented as of this encounter
--- OUTSIDE RECORDS SUMMARY | 2024-06-11 08:24 | XMS_ITS | Encounter Summary ---
Author Organization [facility] Address [address] [place] [address] Care Team Providers Care Asbestos Worker Name Role Phone Erlinda Alvarado NP Primary Care Provider [phone] ChaneyNiesha Unavailable [phone] Raul Cary MD Primary Care Provider Emerald vailable None, Provider Primary Care Provider Unavaila Mynor Marshall MD Primary Care Provider [phone] Encounter Details Date Type Department Care Team (Late st Contact Info) Description 02/16/[address] [facility] [address] [place] [address] , Generic Conversion, Social History Tobacco Use Types Packs/Day Years Used Date Smoking Tobacco: Never Assessed Comments Unknown Sex and Gender Information Value Date Recorded Sex Assigned at Female 06/10/2024 9:09 AM CDT Legal Sex Female 7:01 PM CDT Gender Identity Female 06/10/2024 9:09 AM CDT Sexual Orientation Not on file documented as of this encounter Plan of Treatment Upcoming Encounters Date Type Department Care Team (Late st Contact Info) Description 07/02/2024 9:40 AM CDT Office Visit [facility] Urology - [place] [address] [place] [address] Yesika Monae MD [address] [place] [address] documented as of this encounter Visit Diagnoses Not on filedocumented in this encounter Additional Health Concerns Infection Onset Date Last Indicated Resolved Time COVID-19 Rule Out 01/23/2020 01/23/2020 01/26/2020 10:41 AM FRONTEND ENGINEER documented as of this encounter Care Teams Asbestos Worker Relationship Specialty Start Date End Date Erlinda Alvarado LEGAL MANAGER PCP - General NURSE PRACTITIONER 09/09/19 04/01/21 Niesha Chaney APNP [address] [place] [address] PCP - Obstetrics/Gynecology Nurse Practitioner Women's Health 12/21/20 Raul Cary MD [address] [place] [address] PCP - General FAMILY PRACTICE 04/02/21 08/24/21 None, MD Odalys PCP - General 08/25/21 04/15/24 Mynor Baron MD [address] [place] [address] PCP - General INTERNAL MEDICINE 04/16/24 documented as of this encounter
--- OUTSIDE RECORDS SUMMARY | 2024-06-11 08:24 | XMS_ITS | Encounter Summary ---
Author Organization [facility] Address [address] [place] [address] Care Team Providers Care Crop Duster Helper Name Role Phone Niesha Chaney Unavailable [phone] Mynor Baron MD Primary Care Provider [phone] Encounter Details Date Type Department Care Team (Late st Contact Info) Description 06/10/2024 7:50 PM CDT Hospital Encounter [facility] [address] [place] [address] Anjali Barnes APNP [address] [place], [place] [address] Social History Tobacco Use Types Packs/Day Years [...] Description 07/02/2024 9:40 AM CDT Office Visit [facility] Urology [facility] [address] [place] [address] Yesika Monae MD [address] [place] [address] documented as of this encounter Visit Diagnoses Not on filedocumented in this encounter Additional Health Concerns Assessment Noted Time PHQ-9 Depression Total Score: 0 01/25/20 21 1:51 PM VIOLIN TEACHER documented as of this encounter Care Teams Crop Duster Helper Relationship Specialty Start Date End Date Niesha Chaney APNP [address] [place] [address] PCP - Obstetrics/Gynecology Nurse Practitioner Women's Health 12/21/20 Mynor Baron MD [address] [place] [address] PCP - General INTERNAL MEDICINE 04/16/24 documented as of this encounter
--- OUTSIDE RECORDS SUMMARY | 2024-06-11 08:24 | XMS_ITS | Encounter Summary ---
Author Organization [facility] Address [facility] [place] [address] Care Team Providers Care Architectural Drafter Name Role Phone Niesha Chaney GINGER Unavailable [phone] Mynor Baron MD Primary Care Provider [phone] Encounter Details Date Type Department Care Team (Latest Contact Info) Description 06/10/2024 Travel Social History Tobacco Use Types Packs/Day Years [...] Description 07/02/2024 9:40 AM CDT Office Visit [facility] Urology - [place] [address] [place] [address] Yesika Monae MD [address] [place] [address] documented as of this encounter Visit Diagnoses Not on filedocumented in this encounter Additional Health Concerns Assessment Noted Time PHQ-9 Depression Total Score: 0 01/25/20 21 1:51 PM RESIDENTIAL SUBCONTRACTOR documented as of this encounter Care Teams Architectural Drafter Relationship Specialty Start Date End Date Niesha Chaney APNP [address] [place] [address] PCP - Obstetrics/Gynecology Nurse Practitioner Women's Health 12/21/20 Mynor Baron MD [address] [place] [address] PCP - General INTERNAL MEDICINE 04/16/24 documented as of this encounter
--- OUTSIDE RECORDS SUMMARY | 2024-06-11 08:24 | XMS_ITS | Clinical Summary ---
Author Organization [facility] Address [address] [place] [address] Phone Care Team Providers Care Optometric Aide Name Role Phone Wyatt Jansen MD Unavailable [phone] Erlinda Alvarado APRN, HOSPITAL CHIEF FINANCIAL OFFICER Primary Care Provider + Allergies Active Allergy Reactions Criticality Noted Date Comments Other Runny Nose Medium 02/09/2016 seasonal Medications famciclovir (FAMVIR) 500 MG Tablet Take 1,500 mg (3 tabs) at first onset of symptoms of cold sore. 3 Tab 1 11/23/19 17 Active Levocetirizine Dihydrochloride (XYZAL PO) Take by mouth. Acti ve ibuprofen (MOTRIN) 600 MG Tablet Take 1 Tab by mouth every 6 hours as needed. 40 Tab 1 04/19/19 18 Active docusate sodium (COLACE) 100 MG Capsule Take 1 Cap by mouth 2 times daily as needed for Constipation. 60 Cap 1 04/19/19 18 Active B Complex Vitamins (VITAMIN B COMPLEX PO) Take by mouth daily. Active MAGNESIUM PO Take 1 Tab by mouth daily. Active ascorbic acid (ASCORBIC ACID) 500 MG Tablet Take 500 mg by mouth daily. Active VITAMIN E PO Take 1 Tab by mouth daily. Active EPINEPHrine (AUVI-Q) 0.3 MG/0.3ML Solution Auto-injector 0.3 mL by Intramuscular route once as needed for Anaphylaxis for up to 1 dose. 2 auto injector 03/07/20 19 Active ipratropium (ATROVENT) 0.06 % Solution 2 Sprays by Nasal route 3 times daily. 1 Bottle 3 06/10/19 20 Active pantoprazole (PROTONIX) 40 MG Tablet Delayed Response Take 1 Tab by mouth daily. 90 Tab 07/30/19 20 Active Beclomethasone Dipropionate (QNASL) 80 MCG/ACT Aerosol Solution 2 Sprays by Nasal route daily. 1 Inhaler 5 09/16/19 20 Active Cholecalciferol 50 mcg Tablet Take by mouth. Acti ve FLUoxetine (PROzac) 20 MG Capsule Take 20 mg by mouth. 02/08/20 Active Melatonin 2.5 MG Chewable Tablet Take 6 mg by mouth. Active nitrofurantoin, macrocrystal-monohy drate, (MACROBID) 100 MG Capsule 01/25/20 Active phenazopyridine (PYRIDIUM) 200 MG Tablet 01/25/20 Active zinc gluconate 50 MG Tablet Take 1 Tablet by mouth daily. Active Cholecalciferol 50 mcg Tablet Take 1 Tablet by mouth daily. Active Active Problems Problem Noted Date Diagnosed Date Anemia 12/24/2017 Dysmenorrhea 04/18/2017 Allergic rhinitis due to allergen 01/21/2016 Overview (02/15/2016): Dust mite, trees, grass, weeds, mold Immunizations Immunization Administration Dates Next Due Influenza Vaccine, Quadrivalent, PF 04/19/2017() Family History Medical History Relation Name Comments Parkinsonism Father Cancer Mother Eczema Mother Relation Name Status Comments Brother 1 Alive Brother 2 Daughter Alive Father Alive Mother Son Alive Social History Tobacco Use Types Packs/Day Years Used Date Smoking Tobacco: Never Smokeless Tobacco: Never Tobacco Cessation:Counseling Given: No Alcohol Use Standard Drinks/Week Comments No 0 (1 standard drink = 0.6 oz pur e alcohol) PHQ-2 Answer Date Recorded Total Score - Questions 1-9 0 02/10 Comments No Sex and Gender Information Value Date Recorded Sex Assigned at Not on file Legal Sex Female 2:50 PM CDT Gender Identity Not on file Sexual Orientation Not on file Last Filed Vital Signs Vital Sign Reading Time Taken Comments Blood Pressure 108/68 03/07/2019 10:19 AM TOURIST CABIN KEEPER Pulse 79 03/09/2021 10:56 AM TOURIST CABIN KEEPER Temperature 36.7 C (98 F) 09/26/2018 6:52 PM CDT Respiratory Rate 18 07/30/2019 2:59 PM CDT Oxygen Saturation 98% 03/09/2021 10:56 AM TOURIST CABIN KEEPER Inhaled Oxygen Concentration - - Weight 63.5 kg (140 lb) 03/07/2019 10:19 AM TOURIST CABIN KEEPER Height 167.6 cm (5' 6 ) 03/09/2021 10:56 AM TOURIST CABIN KEEPER Body Mass Index 23.3 03/07/2019 10:19 AM TOURIST CABIN KEEPER Plan of Treatment Health Maintenance Due Date Last Done Comments Hepatitis C Virus (HCV) Screening 1973 Hepatitis B Immunization (1 of 3 - 19+ 3-dose series) 1992 Cologuard 10/26/2023 Immunochemical Fecal Occult Blood 10/26/2023 Pneumococcal Immunization (50+ years) (1 of 1 - PCV) 10/26/2023 Zoster Immunization (1 of 2) 10/26/2023 Influenza Immunization (#1) 2023 02/11/2020, 1 SARS-COV-2 Immunization (2023- season) 2023 01/18/2021, 12/28/2020 Colonoscopy 01/08/2028 01/07/2018 Colorectal Cancer Screening 01/08/2028 Respiratory Syncytial Virus (RSV) Immunization (Adult) (1 - 1-dose 75+ series) 2048 01/07/2018 DTaP/Tdap/Td Immunization Discontinued 03/12/2015, TdaP Immunization Completed 03/12/2015 Cervical Cancer Screening (CCS) Discontinued Discussion re Starting/Frequency of Mammograms Discontinued 12/21/2020, 10/31/2019, 04/28/2019, Additional history exists Mammogram Discontinued 12/21/2020, 04/12, 04/01/2018 Pap Smear Discontinued 12/21/2020, 11/20/2019 HPV/Cotest Discontinued Meningococcal Immunization (ACWY) Aged Out No longer eligible based on patient's age to complete this topic Rotavirus Immunization Aged Out No lo nger eligible based on patient's age to complete this topic Medical Devices Implanted Type Area Fleshing Machine Operator Device Identifier Shelf Expiration Date Model / Serial / Lot Surgicel Powder Implanted:Qty: 1 on 04/18/2017 by Estee Tipton MD at [facility][1] N/A: [employer] 03/11/2018 [id number] / [id number] / [id number] Description:No charge per Ve nder Rep Procedures Procedure Name Priority Date/Time Associated Diagnosis Comments [facility] SCREENING BILATERAL DIGITAL W CAD W ETIENNE Routine 12/21/2020 11:03 AM CDT Visit for screening mammogram from Last 3 Months or Most Recently Relevant to Health Maintenance Results * [facility] SCREENING BILATERAL DIGITAL W CAD W ETIENNE (12/21/2020 11:03 AM CDT) Anatomical Region Laterality Modality breast Bilateral Mammography 12/21/2020 11:3 3 AM CDT Impressions 12/21/2020 11:33 AM CDT ASSESSMENT: BI-RADS 1; NEGATIVE RECOMMENDATIONS: Yearly screening mammogram of both breasts in 1 year. Given the dense glandular elements supplemental screening with tomosynthesis is indicated. CAD used DICTATION LOCATION: [facility] Signed By: Elo Alfredo M.D. Narrative 12/21/2020 11:33 AM CDT PATIENT HISTORY: Family history of breast cancer in maternal grandmother, breast cancer in maternal aunt. Last mammogram was performed 1 year and 8 months ago. REASON FOR EXAM: screening, asymptomatic. FINDINGS: [facility] SCREENING BILATERAL DIGITAL W CAD W ETIENNE Bilateral MLO, CC, 3DCC, and 3D Etienne ML view(s) were taken. Technologist: Ness Toledo, RT(R) Prior study comparison: October 31, 2019, LEFT DIAG MAMMOGRAM DIGITAL W CAD W ETIENNE, performed at [facility]. October 31, 2019, [facility] US BREAST LIMITIED LEFT, performed at [facility]. April 28, 2019, bilateral ERICH DIAG GAURI DIGITAL W CAD W ETIENNE, performed at [facility]. The breast tissue is heterogeneously dense. No dominant masses or suspicious microcalcifications are seen. No significant changes when compared with prior studies. Erlinda Alvarado APRN, HOSPITAL CHIEF FINANCIAL OFFICER IMG MAMMO ORDERABLES Fin al Result from Last 3 Months or Most Recently Relevant to Health Maintenance Insurance [facility] Care Teams Optometric Aide Relationship Specialty Start Date End Date Erlinda Alvarado, RADIATION PROTECTION TECHNICIAN, HOSPITAL CHIEF FINANCIAL OFFICER [address] [place] [address] PCP - General Certified Nurse Practitioner 10/31/19 Wyatt Jansen MD [address] [place] [address] Lead Embedded Software Engineer Obstetrics & Gynecology 12/18/17
--- OUTSIDE RECORDS SUMMARY | 2024-06-11 08:24 | XMS_ITS | Encounter Summary ---
Author Organization [facility] Address [facility] [place] [address] Care Team Providers Care Shovel Logger Name Role Phone Niesha Chaney GINGER Unavailable [phone] Mynor Baron MD Primary Care Provider [phone] Encounter Details Date Type Department Care Team (Latest Contact Info) Description 06/10/2024 Scan [facility] INFO SRVCS Scanned, Doc Med Group Social History Tobacco Use Types Packs/Day Years [...] Description 07/02/2024 9:40 AM CDT Office Visit [facility] Urology - [place] [address] [place] [address] Yesika Monae MD [address] [place] [address] documented as of this encounter Visit Diagnoses Not on filedocumented in this encounter Additional Health Concerns Assessment Noted Time PHQ-9 Depression Total Score: 0 01/25/20 21 1:51 PM MUSICAL INSTRUMENT MAKER documented as of this encounter Care Teams Shovel Logger Relationship Specialty Start Date End Date Niesha Chaney APNP [address] [place] [address] PCP - Obstetrics/Gynecology Nurse Practitioner Women's Health 12/21/20 Mynor Baron MD [address] [place] [address] PCP - General INTERNAL MEDICINE 04/16/24 documented as of this encounter
--- OUTSIDE RECORDS SUMMARY | 2024-06-11 08:24 | XMS_ITS | Encounter Summary ---
Author Organization [facility] Address [address] [place] [address] Care Team Providers Care Heating Equipment Installer Name Role Phone Erlinda Alvarado NP Primary Care Provider [phone] ChaneyNiesha Unavailable [phone] Raul Cary MD Primary Care Provider Emerald vailable None, Provider Primary Care Provider Unavaila Mynor Marshall MD Primary Care Provider [phone] Encounter Details Date Type Department Care Team (Late st Contact Info) Description 07/12/[address] [facility] Conversion [address] [facility] [address] , Generic Conversion, Social History [...] Description 07/02/2024 9:40 AM CDT Office Visit [facility] Urology - [place] [address] [place] [address] Yesika Monae MD [address] [place] [address] documented as of this encounter Visit Diagnoses Not on filedocumented in this encounter Additional Health Concerns Infection Onset Date Last Indicated Resolved Time COVID-19 Rule Out 01/23/2020 01/23/2020 01/26/2020 10:41 AM INTERNET MANAGER documented as of this encounter Care Teams Heating Equipment Installer Relationship Specialty Start Date End Date Erlinda Alvarado CHANGE OVER PCP - General NURSE PRACTITIONER 09/09/19 04/01/21 Niesha Chaney APNP [address] [place] [address] PCP - Obstetrics/Gynecology Nurse Practitioner Women's Health 12/21/20 Raul Cary MD [address] [place] [address] PCP - General FAMILY PRACTICE 04/02/21 08/24/21 None, MD Odalys PCP - General 08/25/21 04/15/24 Mynor Baron MD [address] [place] [address] PCP - General INTERNAL MEDICINE 04/16/24 documented as of this encounter
--- OUTSIDE RECORDS SUMMARY | 2024-06-11 08:24 | XMS_ITS | Encounter Summary ---
Author Organization [facility] Address [address] [place] [address] Care Team Providers Care Animal Rehabilitator Name Role Phone Erlinda Alvarado NP Primary Care Provider [phone] ChaneyNiesha Unavailable [phone] Raul Cary MD Primary Care Provider Emerald vailable None, Provider Primary Care Provider Unavaila Mynor Marshall MD Primary Care Provider [phone] Encounter Details Date Type Department Care Team (Late st Contact Info) Description 10/29/2020 MyChart Message Enc [facility] Family Medicine - [place] [address] [place] [address] Jo Elaine NP [address] [place] [address] RE: Follow Up/Update Social History Tobacco Use Types Packs/Day Years [...] Description 07/02/2024 9:40 AM CDT Office Visit [facility] Urology [facility] [address] [place] [address] Yesika Monae MD [address] [place], [place] [id number] documented as of this encounter Visit Diagnoses Not on filedocumented in this encounter Care Teams Animal Rehabilitator Relationship Specialty Start Date End Date Erlinda Alvarado NP PCP - General NURSE PRACTITIONER 09/09/19 04/01/21 Niesha Chaney APNP [address] [place] [address] PCP - Obstetrics/Gynecology Nurse Practitioner Women's Health 12/21/20 Raul Cary MD [address] [place] [address] PCP - General FAMILY PRACTICE 04/02/21 08/24/21 None, MD Odalys PCP - General 08/25/21 04/15/24 Mynor Baron MD [address] [place] [address] PCP - General INTERNAL MEDICINE 04/16/24 documented as of this encounter
--- OUTSIDE RECORDS SUMMARY | 2024-06-11 08:24 | XMS_ITS | Encounter Summary ---
Author Organization [facility] Address [address] [place] [address] Care Team Providers Care Interventional Sale Consultant Name Role Phone Erlinda Alvarado NP Primary Care Provider [phone] ChaneyNiesha Unavailable [phone] Raul Cary MD Primary Care Provider Emerald vailable None, Provider Primary Care Provider Unavaila Mynor Marshall MD Primary Care Provider [phone] Encounter Details Date Type Department Care Team (Late st Contact Info) Description 11/02/2020 MyChart Message Enc [facility] Family Medicine - [place] [address] [place] [address] Jo Elaine NP [address] [place] [address] RE: Other Social History Tobacco Use Types Packs/Day Years [...] Office Visit [facility] Urology [facility] [address] [place] [address] Yesika Monae MD [address] [place], [place] [id number] documented as of this encounter Visit Diagnoses Not on filedocumented in this encounter Care Teams Interventional Sale Consultant Relationship Specialty Start Date End Date Erlinda Alvarado NP PCP - General NURSE PRACTITIONER 09/09/19 04/01/21 Niesha Chaney APNP [address] [place] [address] PCP - Obstetrics/Gynecology Nurse Practitioner Women's Health 12/21/20 Raul Cary MD [address] [place] [address] PCP - General FAMILY PRACTICE 04/02/21 08/24/21 None, MD Odalys PCP - General 08/25/21 04/15/24 Mynor Baron MD [address] [place] [address] PCP - General INTERNAL MEDICINE 04/16/24 documented as of this encounter
--- OUTSIDE RECORDS SUMMARY | 2024-06-11 08:24 | XMS_ITS | Encounter Summary ---
Author Organization [facility] Address [address] [place] [address] Care Team Providers Care Outbound Telemarketer Name Role Phone Erlinda Alvarado NP Primary Care Provider [phone] ChaneyNiesha Unavailable [phone] Raul Cary MD Primary Care Provider Emerald vailable None, Provider Primary Care Provider Unavaila Mynor Marshall MD Primary Care Provider [phone] Encounter Details Date Type Department Care Team (Late st Contact Info) Description 12/14/[address] [facility] Conversion [address] [place] [address] , Generic Conversion, Social History [...] Description 07/02/2024 9:40 AM CDT Office Visit [facility] Urology - [place] [address] [place] [address] Yesika Monae MD [address] [place] [address] documented as of this encounter Visit Diagnoses Not on filedocumented in this encounter Additional Health Concerns Infection Onset Date Last Indicated Resolved Time COVID-19 Rule Out 01/23/2020 01/23/2020 01/26/2020 10:41 AM SYRUP MIXER ASSISTANT documented as of this encounter Care Teams Outbound Telemarketer Relationship Specialty Start Date End Date Erlinda Alvarado LABEL PASTER PCP - General NURSE PRACTITIONER 09/09/19 04/01/21 Niesha Chaney APNP [address] [place] [address] PCP - Obstetrics/Gynecology Nurse Practitioner Women's Health 12/21/20 Raul Cary MD [address] [place] [address] PCP - General FAMILY PRACTICE 04/02/21 08/24/21 None, MD Odalys PCP - General 08/25/21 04/15/24 Mynor Baron MD [address] [place] [address] PCP - General INTERNAL MEDICINE 04/16/24 documented as of this encounter
--- OUTSIDE RECORDS SUMMARY | 2024-06-11 08:24 | XMS_ITS | Clinical Summary ---
Author Organization [facility] Address [address] [place] [address] Care Team Providers Care Director Of Outreach Name Role Phone Niesha Chaney GINGER Unavailable [phone] Mynor Baron MD Primary Care Provider [phone] Allergies Active Allergy Reactions Criticality Noted Date Comments Seasonal Runny Nose Medium 02/09/2016 seasonal Medications Vitamin E Powder Take 1 tablet by mouth daily. Active Ascorbic Acid (VITAMIN C) 100 MG tablet Take 100 mg by mouth daily. Active Cholecalciferol (VITAMIN D) 50 MCG (1999 UT) Tab Take 1 tablet daily. Active Levocetirizine Dihydrochloride (XYZAL) 5 MG Tab Take 1 tablet (5 mg total) by mouth nightly at bedtime. Active zinc gluconate 50 MG Tab Take 1 tablet by mouth daily. Active Melatonin 2.5 MG Chew Tab Chew 6 mg by mouth as needed. Active FLUoxetine 20 MG capsuleIndications:S ituational stress Take 1 capsule (20 mg total) by mouth daily. 30 capsule 2 Active Active Problems Problem Noted Date Diagnosed Date Acute cystitis without hematuria 01/25/2021 Assessment & Plan (01/25/2021 9:22 PM SINGING WAITER OR WAITRESS): Urinalysis positive for nitrites. Treat with macrobid as discussed. Ordered urine culture. Patient education provided regarding condition both verbally and with written instructions in after visit summary. Situational stress 12/09/2020 Assessment & Plan (12/09/2020 8:20 AM CDT): Trial prozac by mouth daily. Discussed that she should continue to exercise, find time to do self care. Follow up in 6 weeks. May need to take time off, but she would like to wait. Recommended counseling to help her get through this. Normal routine physical examination 09/10/2019 Assessment & Plan (09/10/2019 7:04 PM CDT): Physical form for employer was completed today. 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 No evidence of communicable disease. History of blood in urine 02/26/2017 Assessment & Plan (09/10/2019 6:57 PM CDT): Evaluated with cystoscopy by Dr. Tipton when she had her hysterectomy, which was unremarkable. Allergic rhinitis 01/21/2016 Overview (12/09/2020): Dust mite, trees, grass, weeds, mold Resolved Problems Problem Noted Date Diagnosed Date Resolved Date Sinus pressure 08/05/2020 12/09/2020 Acute right-sided low back p ain with right-sided sciatica 11/10/2019 12/09/2020 Acute right-sided low back p ain with right-sided sciatica 10/15/2019 12/09/2020 Assessment & Plan (10/15/2019 4:47 PM CDT): Toradol IM today, will start meloxicam tomorrow along with muscle relaxants. Recommend physical therapy as well. If no improvement or worsening of symptoms, she should come back sooner. Right lower quadrant pain 09/10/2019 Assessment & Plan (09/10/2019 6:59 PM CDT): Patient only has a right ovary. Will have a transvaginal ultrasound for further evaluation and refer back to gynecology for further evaluation and treatment. It is possible that this is due to adhesions or possibly ovarian cysts. With her family history of vaginal cancer it is important for this to be evaluated closely. This has been going on since her hysterectomy. No dysuria or changes in bowels. Encounters Date Type Department Care Team Description 06/10/2024 7:50 PM CDT Hospital Encounter [facility] [address] [place] [address] Anjali Barnes APNP 06/10/2024 9:00 AM CDT [facility] [address] [place] [address] Anjali Barnes APNP New Patient (Pt referred for right kidney stone. Pt states she has urinary frequency at times with left back pain. She states she has passed kidney stones in the past and recently passed one while admitted to the hospital in 02/2024) 06/10/2024 Scan HEALTH INFO SRVCS Scanned, [facility] 06/10/2024 Telephone [facility] [address] [place] [address] Anjali Barnes APNP Results 06/10/2024 Travel 04/22/2024 Scan [facility] HEALTH INFO SRVCS Scanned, [facility] 04/16/2024 Telephone [facility] [address] [place] [address] Anjali Barnes APNP Referral from Last 3 Months Immunizations Name Administration Dates Next Due DT (Generic) 11/01/1983 Influenza (Generic) 12/14/2017 Influenza Adult (Generic) 02/11/2020 Opv 11/01/1983 Tdap (Generic) 03/12/2015 Family History Medical History Relation Comments drowning Brother 2 Parkinson's Disease Father Cancer Maternal Aunt breast Cancer Maternal Grandmother breast Diabetes Maternal Grandmother Cancer Mother vaginal cancer vaginal cancer Mother Relation Status Comments Brother 1 Alive Brother 2 Daughter Alive Father Alive Maternal Aunt Maternal Grandmother Mother Son Alive Social History Tobacco Use Types Packs/Day Years Used Date Smoking Tobacco: Never Smokeless Tobacco: Never Tobacco Cessation:Counseling Given: No Alcohol Use Standard Drinks/Week Comments Yes 1.7 [...] AM CDT Sexual Orientation Not on file Last Filed Vital Signs Vital Sign Reading Time Taken Comments Blood Pressure 109/68 06/10/2024 9:07 AM CDT Pulse 65 06/10/2024 9:07 AM CDT Temperature 36.6 C (97.8 F) 01/24/2021 1:52 PM SINGING WAITER OR WAITRESS Respiratory Rate 16 06/10/2024 9:07 AM CDT Oxygen Saturation 99% 06/10/2024 9:07 AM CDT Inhaled Oxygen Concentration - - Weight 64.4 kg (142 lb) 06/10/2024 9:07 AM CDT Height 167.6 cm (5' 6 ) 06/10/2024 9:07 AM CDT Body Mass Index 22.92 06/10/2024 9:07 AM CDT Plan of Treatment Upcoming Encounters Date Type Department Care Team (Late st Contact Info) Description 07/02/2024 9:40 AM CDT Office Visit [facility] U[facility] - [place] [address] [place] [address] Yesika Monae MD [address] [place] [address] Health Maintenance Due Date Last Done Comments Colorectal Cancer Screening Colonoscopy (10 Years) 1975 Hepatitis C 10/26/1991 Hepatitis B Vaccines (1 of 3 - 19+ 3-dose series) 1992 Annual Physical 12/21/2021 12/21/2020, 11/20/2019 Mammogram Screening 12/21/2022 12/21/2020, 10/31/2019, 04/28/2019, Additional history exists Zoster Vaccines (1 of 2) 10/26/2023 COVID-19 Vaccine ( season) 2023 01/18/2021, 12/28/2020 DTaP, Tdap and Td Vaccines (3 - Td or Tdap) 03/12/2025 03/12/2015, 11/01/1983 PHQ-2 (Physician [place]) Completed 06/10/2024 Meningococcal B Vaccine Aged Out No l onger eligible based on patient's age to complete this topic Meningococcal Vaccine Aged Out No heide svetlana eligible based on patient's age to complete this topic Pneumococcal Vaccine: Pediatrics (0 to 5 Years) and At-Risk Patients (6 to 64 Years) Aged Out No longer eligible based on patient's age to complete this topic RSV Immunizations Under 20 Months Aged Out No longer eligible based on patient's age to complete this topic Procedures Procedure Name Priority Date/Time Associated Diagnosis Comments XR ABD KUB Routine 06/10/2024 10:35 AM CDT Nephrolithiasis URINALYSIS AUTO DIP Routine 06/10/2024 9 :09 AM CDT Screening for blood or protein in urine from Last 3 Months Results * XR ABD KUB (06/10/2024 10:35 AM CDT) Anatomical Region Laterality Modality Abdomen Radiographic Margot ging Narrative 06/10/2024 11:41 AM CDT Table formatting from the original result was not included. 06/10/24 10:35 AM Karina Dallas: UROLOGY XRAY KUB EXAM DATE: 06/10/2024 DIAGNOSIS: Nephrolithiasis PATIENT: NAME: Monserrat Terrell : 1975 GENDER: female VITALS: HEIGHT: 1.676 m (5' 6 ) PULSE: WEIGHT: 64.4 kg (142 lb) RESP: BP: 109/68 TEMP: PRIOR FILM: KUB X-RAY: A supine film was obtained. The bowel gas pattern was noted. IMPRESSION: Calcifications: There were no identifiable stones over the renal shadow or the course of the ureters. Bowel gas pattern: WNL Other observations noted: Follow up: KUB 6 months The images for this exam are on hard copy film us Anjali MILES GENERAL IMAGING Final Result * (ABNORMAL) URINALYSIS AUTO DIP (06/10/2024 9:09 AM CDT) COLOR (U) YELLOW YELLOW [facility] [place] TRANSPARENCY CLEAR CLEAR [facility] [place] GLUCOSE (U) NEGATIVE NEGATIVE MG/DL [facility] [place] BILIRUBIN (U) NEGATIVE NEGATIVE [facility] [address] [place] KETONES MG/DL (U) NEGATIVE NEGATIVE MG/DL [facility] [place] SPECIFIC GRAVITY (U) 1.010 1.001 - 1.[address] [place] BLOOD (U) TRACE (Non Hemolyzed, Intact)(A) NEGATIVE [facility] [place] U PH 6.5 5.0 - 9.[address] [place] PROTEIN (U) NEGATIVE NEGATIVE mg/dL [facility] [place] UROBILINOGEN 0.2 0.2 - 1.0 EU/dL = mg/dL [facility] [place] NITRITES NEGATIVE NEGATIVE MG/DL [facility] [place] LEUKOCYTES (U) NEGATIVE NEGATIVE [facility] [address] [place] URINE SPECIMEN OBTAINED BY CLEAN CATCH PROCEDURE / Unknown 06/10/2024 9:09 AM CDT Anjali MILES URINE ORDERABLES Final Result Performing Organization Address City/State/[facility] de Phone Number [address] [place] [address] [place] [address], from Last 3 Months Insurance [facility] Care Teams Director Of Outreach Relationship Specialty Start Date End Date Niesha Chaney APNP [address] [place] [address] PCP - Obstetrics/Gynecology Nurse Practitioner Women's Health 12/21/20 Mynor Baron MD [address] [place] [address] PCP - General INTERNAL MEDICINE 04/16/24
--- OUTSIDE RECORDS SUMMARY | 2024-06-11 08:24 | XMS_ITS | Encounter Summary ---
Author Organization [facility] Address [address] [place] [address] Care Team Providers Care Cytogenetics Laboratory Manager Name Role Phone Erlinda Alvarado NP Primary Care Provider [phone] ChaneyNiesha Unavailable [phone] Raul Cary MD Primary Care Provider Emerald vailable None, Provider Primary Care Provider Unavaila Mynor Marshall MD Primary Care Provider [phone] Encounter Details Date Type Department Care Team (Latest Contact Info) Description 04/03/2017 Abstract [facility] Matt Jimenez MD Social History Tobacco Use Types Packs/Day Years [...] Description 07/02/2024 9:40 AM CDT Office Visit [facility] Urology - [place] [address] [place] [address] Yesika Monae MD [address] [place] [address] documented as of this encounter Visit Diagnoses Not on filedocumented in this encounter Additional Health Concerns Infection Onset Date Last Indicated Resolved Time COVID-19 Rule Out 01/23/2020 01/23/2020 01/26/2020 10:41 AM DISTRICT SUPERVISOR documented as of this encounter Care Teams Cytogenetics Laboratory Manager Relationship Specialty Start Date End Date Erlinda Alvarado NP PCP - General NURSE PRACTITIONER 09/09/19 04/01/21 Niesha Chaney APNP [address] [place] [address] PCP - Obstetrics/Gynecology Nurse Practitioner Women's Health 12/21/20 Raul Cary MD [address] [place] [address] PCP - General FAMILY PRACTICE 04/02/21 08/24/21 None, MD Odalys PCP - General 08/25/21 04/15/24 Mynor Baron MD [address] [place] [id number] PCP - General INTERNAL MEDICINE 04/16/24 documented as of this encounter
--- OUTSIDE RECORDS SUMMARY | 2024-06-11 08:24 | XMS_ITS | Encounter Summary ---
Author Organization [facility] Address [address] [place] [address] Care Team Providers Care Deportation Examiner Name Role Phone Shiv Niesha APNP Unavailable [phone] Roxie Covarrubias MD Primary Care Provider [phone] Reason for Visit * Reason Comments New Patient Pt referred for righ t kidney stone. Pt states she has urinary frequency at times with left back pain. She states she has passed kidney stones in the past and recently passed one while admitted to the hospital in 02/2024 * Consultation/Treatment (Routine) - Authorized Specialty Diagnoses / Procedures Referred By Contact Referred To Contact NURSE PRACTITIONER / UROLOGY Diagnoses Received external referral Dr. Roxie Covarrubias re: Right kidney stone Procedures NEW PATIENT Roxie Covarrubias MD [address] [place] [address] Phone: tel: fax: Annie Sanders APNP [address] [place] [address] Phone: tel:[phone] fax:[phone] Referral ID Status Reason Start Date Expiration Date V isits Requested Visits Authorized [id number] Authorized 04/17/2024 100 100 Encounter Details Date Type Department Care Team (Late st Contact Info) Description 06/10/2024 9:00 AM CDT Office Visit [facility] Urology - [place] [address] [place] [id number] Annie Sanders APNP [address] [place] [address] New Patient (Pt referred for right kidney stone. Pt states she has urinary frequency at times with left back pain. She states she has passed kidney stones in the past and recently passed one while admitted to the hospital in 02/2024) Social History Tobacco Use Types Packs/Day Years [...] on file documented as of this encounter Last Filed Vital Signs Vital Sign Reading Time Taken Comments Blood Pressure 109/68 06/10/2024 9:07 AM CDT Pulse 65 06/10/2024 9:07 AM CDT Temperature - - Respiratory Rate 16 06/10/2024 9:07 AM CDT Oxygen Saturation 99% 06/10/2024 9:07 AM CDT Inhaled Oxygen Concentration - - Weight 64.4 kg (142 lb) 06/10/2024 9:07 AM CDT Height 167.6 cm (5' 6 ) 06/10/2024 9:07 AM CDT Body Mass Index 22.92 06/10/2024 9:07 AM CDT documented in this encounter Progress Notes * GINGER Garcia - 06/10/2024 9:00 AM CDT Reason for Visit: New Patient (Pt referred for right kidney stone. Pt states she has urinary frequency at times with left back pain. She states she has passed kidney stones in the past and recently passed one while admitted to the hospital in 02/2024) History of Present Illness: Ms. Terrell is a 48-year-old female referred to the office for right renal calculi. She has a historyof urolithiasis with previous ESWL in 2011. Was recently seen in the ER 02/15/2024 with bilateral flank pain 3-day duration, right greater than left with pain radiating into her abdomen towards her groin. CT renal protocol completed 02/15/2024 showing 4 mm stone in the right kidney. She questioned whether she may have passed this stone while at the hospital. She continues to have frequency at timeswith some left back pain occurring on a monthly basis. Reports 3-4 UTIs yearly with symptoms including burning and frequency. She states her last 2 cultures when symptomatic were negative. She has been under quite a bit of stress at work. Was previously seen by urology at [place] but was unsatisfied with their follow-up. States she had a previous CT at [facility] which showed bilateral renal calculi, will request results. PVR 58 mL. ROS: Review of Systems Genitourinary: Positive for frequency. Medications: Current Outpatient Medications: FLUoxetine 20 MG capsule, Take 1 capsule (20 mg total) by mouth daily., Disp: 30 capsule, Rfl: 0 Levocetirizine Dihydrochloride (XYZAL) 5 MG Tab, Take 1 tablet (5 mg total) by mouth nightly at bedtime., Disp: , Rfl: Melatonin 2.5 MG Chew Tab, Chew 6 mg by mouth as needed., Disp: , Rfl: Ascorbic Acid (VITAMIN C) 100 MG tablet, Take 100 mg by mouth daily., Disp: , Rfl: Cholecalciferol (VITAMIN D) 50 MCG (1999 UT) Tab, Take 1 tablet daily., Disp: , Rfl: Vitamin E Powder, Take 1 tablet by mouth daily., Disp: , Rfl: zinc gluconate 50 MG Tab, Take 1 tablet by mouth daily., Disp: , Rfl: Review of patient's allergies indicates: Allergen Reactions Seasonal Runny Nose seasonal Past Medical History: Diagnosis Date Anemia due to dysfunctional uterine bleeding from fibroids, has had a hysterectomy to correct this issue. Kidney stones Pneumonia due to COVID-19 virus 09/2020 Treated with zpak and steroid Seasonal allergies Sees Dr. De Santiago Past Surgical History: Procedure Laterality Date SECTION 1 COLONOSCOPY/EGD [address] Yepez, needs repeat in scope in 10 years, was normal. CYSTOSCOPY 04/2017 Dr. Tipton HYSTERECTOMY 2017, apr has right ovary LITHOTRIPSY ORAL SURGERY PROCEDURE Bilateral wisdom REMOVAL OF OVARY(S) Left 1999 left removal. Social History Socioeconomic History Marital status: Tobacco Use Smoking status: Never Smokeless tobacco: Never Vaping Use Vaping status: Never Used Substance and Sexual Activity Alcohol use: Yes Alcohol/week: 1.7 standard drinks of alcohol Types: 1 Glasses of wine per week Comment: socially Drug use: Never Sexual activity: Yes control/protection: Surgical Family History Problem Relation Name Age of Onset Cancer Mother 44 vaginal cancer Other (vaginal cancer) Mother Parkinson's Disease Father 62 Cancer Maternal Aunt breast Cancer Maternal Grandmother breast Diabetes Maternal Grandmother Other (drowning) Brother Family Status Relation Name Status Mother Father Alive MAunt (Not Specified) MGM (Not Specified) Brother derek Alive Brother Son daniel Alive Daughter john Alive No partnership data on file Physical Exam Vitals and nursing note reviewed. Constitutional: General: She is awake. Appearance: Normal appearance. Abdominal: Palpations: Abdomen is soft. Tenderness: There is no abdominal tenderness. There is no right CVA tenderness or left CVA tenderness. Neurological: Mental Status: She is alert and oriented to person, place, and time. Filed Vitals: 06/10/24 0907 BP: 109/68 Pulse: 65 Resp: 16 SpO2: 99% Weight: 64.4 kg (142 lb) Height: 1.676 m (5' 6 ) PainSc: 0 (0-10 Scale) Results for orders placed or performed in visit on 06/10/24 URINALYSIS AUTO DIP Result Value Ref Range COLOR (U) YELLOW YELLOW TRANSPARENCY CLEAR CLEAR GLUCOSE (U) NEGATIVE NEGATIVE MG/DL BILIRUBIN (U) NEGATIVE NEGATIVE KETONES MG/DL (U) NEGATIVE NEGATIVE MG/DL SPECIFIC GRAVITY (U) 1.010 1.001 - 1.035 BLOOD (U) TRACE (Non Hemolyzed, Intact) (A) NEGATIVE U PH 6.5 5.0 - 9.0 PROTEIN (U) NEGATIVE NEGATIVE mg/dL UROBILINOGEN 0.2 0.2 - 1.0 EU/dL = mg/dL NITRITES NEGATIVE NEGATIVE MG/DL LEUKOCYTES (U) NEGATIVE NEGATIVE Diagnoses/Impression: 1. Screening for blood or protein in urine URINALYSIS AUTO DIP 2. Nephrolithiasis XR ABD KUB CANCELED: XR ABD KUB 3. Recurrent UTI Recommendations and Plan: KUB was completed in the office today. Results were discussed with patient. Her urine was sent for culture and sensitivity and cytology. Will order 24-hour UroCor to determine stone prevention. I will request her previous CT report from [facility] for comparison. We discussed repeat CT if symptoms are persistent to rule out ureteral stone, she prefers to hold off at this time.I will schedule her for further evaluation with cystoscopy. Further recommendations pending resultsof recommended testing. Reviewed and updated this visit by provider: Tobacco Allergies Meds Problems Med Hx Surg Hx Fam Hx ANNIE SANDERS Referring Provider: Roxie Covarrubias MD PCP: ROXIE COVARRUBIAS MD documented in this encounter Plan of Treatment Upcoming Encounters Date Type Department Care Team (Late st Contact Info) Description 07/02/2024 9:40 AM CDT Office Visit [facility] U[facility] - [place] [address] [place] [address] Yesika Monae MD [address], [place] [id number] Pending Results Name Type Priority Associated Diagnoses Date /Time URINE BACTERIA CULTURE Microbiology Routine Benign essential microscopic hematuria 06/10/2024 10:07 AM CDT Scheduled Orders Name Type Priority Associated Diagnoses Orde r Schedule CYTOLOGY GENERIC Pathology and Cytology Routine Benign essential microscopic hematuria Expected: 06/10/2024, Expires: 06/10/2025 URINE BACTERIA CULTURE Microbiology Routine Benign essential microscopic hematuria Expected: 06/10/2024, Expires: 06/10/2025 documented as of this encounter Procedures Procedure Name Priority Date/Time Associated Diagnosis Comments URINALYSIS AUTO DIP Routine 06/10/2024 9 :09 AM CDT Screening for blood or protein in urine documented in this encounter Results * XR ABD KUB (06/10/2024 10:35 [...] exam are on hard copy film us Annie MILES GENERAL IMAG[facility] Final Result * (ABNORMAL) [...] PROCEDURE / Unknown 06/10/2024 9:09 AM CDT us Annie MILES URINE ORDERABLES Final Result [facility] [address] [place] [address], documented in this encounter Visit Diagnoses Diagnosis Nephrolithiasis- Primary Calculus of kidney Screening for blood or protein in urine Screening for unspecified condition Recurrent UTI Urinary tract infection, site not specified Benign essential microscopic hematuria Microscopic hematuria documented in this encounter Additional Health Concerns Assessment Noted Time PHQ-9 Depression Total Score: 0 01/25/20 21 1:51 PM OPERATIONS EXAMINER documented as of this encounter Care Teams Deportation Examiner Relationship Specialty Start Date End Date Niesha Chaney APNP [address] [place] [address] PCP - Obstetrics/Gynecology Nurse Practitioner Women's Health 12/21/20 Roxie Covarrubias MD [address] [place] [id number] PCP - General INTERNAL MEDICINE 04/16/24 documented as of this encounter
[2024-06-11 08:31] LABS: Add Urine Microscopic? YES; Appearance Urine Clear (Clear); Bilirubin Urine Negative (Negative); Blood Urine 1+ (Negative); Color Urine Light Yellow (Yellow); Glucose Urine UA Negative (Negative); Ketones Urine Negative (Negative); Leukocyte Esterase Ur Negative LEU/UL (Negative); Nitrate Urine Negative (Negative); Protein Urine Negative (Negative); Specific Grav Ur <= 1.005 (1.010-1.020); Urobilinogen Urine 0.2 mg/dL (0.2-1.0)
[2024-06-11 08:44] LABS: RBC Urine 0-2 /hpf (0-2)
[2024-06-11 08:45] LABS: Bacteria Urine Rare /hpf; Squamous Epithelial Cell Urine Rare /hpf (Few); WBC Urine None seen /hpf (0-3)
[2024-06-12 19:39] LABS: FSH 85.1 mIU/mL; Vitamin D 25 Hydroxy 57 ng/mL (30-100)
[2024-06-15 15:38] LABS: Anti Mullerian Hormone,Female 0.01 ng/mL
== END 2024-06-11 08:07 | disposition home or self-care (01) ==
LOC: CHSLAB 08:14
PROVIDERS: PCP Internal Medicine
DX: N95.1 Menopausal and female climacteric states (principal); F41.9 Anxiety disorder, unspecified; E55.9 Vitamin D deficiency, unspecified
CPT/HCPCS: 36415; 81001; 82306; 82670; 83001

== ENCOUNTER 2025-02-13 16:29 | Emergency (ER) | payer BC, SELFPAY ==
--- NOTE | ~2025-02-13 | CT_ITS ---
EXAMINATION: CT abdomen pelvis w con DATE: 02/13/2025 18:18 INDICATION: Generalized abdominal TECHNIQUE: Computed tomography (CT) of the abdomen and pelvis was performed with 100 cc Omnipaque 350 intravenous contrast. The dose-length product was 272.19 mGy-cm. Automated exposure control and iterative reconstruction technique were employed. COMPARISON: CT dated 02/15/2024. FINDINGS: Lung bases unremarkable. Heart size normal. No significant pleural or pericardial effusion. Small low-density lesion right hepatic lobe, most likely cysts. Fatty infiltration of the liver. The spleen, pancreas, adrenal glands and kidneys are unremarkable. Nonobstructive bowel gas pattern. There are changes of previous appendectomy. No abnormal pelvic masses or fluid collections. No significant vascular abnormality. Gallbladder is present. No lymphadenopathy. No free air or free fluid. Moderate lumbar spondylosis at L4-5 with grade 1 degenerative spondylolisthesis. IMPRESSION: 1. No acute abdominal abnormality. Reviewed, dictated and finalized at location I. [employer]
--- OUTSIDE RECORDS SUMMARY | 2025-02-13 16:31 | XMS_ITS | Clinical Summary ---
Author Organization [facility] Address [address] [place] [address] Care Team Providers Care Drupal Developer Name Role Phone Niesha Chaney Unavailable Unavailable Mynor Baron MD Primary Care Provider [phone] Allergies Active Allergy Reactions Criticality Noted Date [...] by mouth daily. 30 capsule 2 Active Hospital, Clinic, or Other Facility Administered Medication Ordered Dose Route Frequency Start Date End Date Status lidocaine 2 % URO-JET jellyIndications:Microhematur ia TOP As needed 07/02/2024 Active Active Problems Problem Noted Date Diagnosed Date Acute cystitis without hematuria 01/25/2021 Assessment & Plan (01/25/2021 9:22 PM MILL SUPERVISOR): Urinalysis positive for nitrites. Treat with macrobid [...] Encounters Date Type Department Care Team Description 01/07/2025 Orders Only [facility] Urology - [place] [address] [place] [id number] Anjali Barnes, GINGER from Last 3 Months Immunizations Immunization Administration Dates Next Due DT (Generic) 11/01/1983 [...] Smokeless Tobacco: Never Tobacco Cessation:Counseling Given: No Comments:Non smoker Alcohol Use Standard Drinks/Week Comments Yes 1.7 (1 standard drink = 0.6 oz p ure alcohol) socially AUDIT-C Answer Date Recorded Frequency of Alcohol Consumption Monthly or less 09/09/2019 Average Number of Drinks Not on file 020 Frequency of Binge Drinking Not on file 08/12 PHQ-2 Answer Date Recorded Patient Health Questionnaire-2 Score 0 07/02/2024 Comments No Sex and Gender Information Value Date Recorded Sex Assigned at Female 06/10/2024 9:09 AM CDT Legal Sex Female 7:01 PM CDT Gender Identity Female 06/10/2024 9:09 AM CDT Sexual Orientation Not on file Last Filed Vital Signs Vital Sign Reading Time Taken Comments Blood Pressure 102/62 07/02/2024 9:40 AM CDT Pulse 69 07/02/2024 9:40 AM CDT Temperature 36.6 C (97.8 F) 01/24/2021 1:52 PM MILL SUPERVISOR Respiratory Rate 16 07/02/2024 9:40 AM CDT Oxygen Saturation 98% 07/02/2024 9:40 AM CDT Inhaled Oxygen Concentration - - Weight 67.9 kg (149 lb 9.6 oz) 07/02/2024 9:40 A M CDT Height 167.6 cm (5' 6) 07/02/2024 9:40 AM CDT Body Mass Index 24.15 07/02/2024 9:40 AM CDT Plan of Treatment Health Maintenance Due Date Last Done Comments Colorectal Cancer Screening Colonoscopy (10 Years) 1973 Hepatitis C 10/26/1991 Hepatitis B Vaccines (1 of 3 - 19+ 3-dose series) 1992 Annual Physical 12/21/2021 12/21/2020, 11/20/2019 Mammogram Screening 12/21/2022 12/21/2020, 10/31/2019, 04/28/2019, Additional history exists Pneumococcal Vaccine: 50+ Years (1 of 1 - PCV) 10/26/2023 Zoster Vaccines (1 of 2) 10/26/2023 COVID-19 Vaccine (3 - 2024- season) 2024 01/18/2021, 12/28/2020 Influenza Adult (#1) 2024 02/11/2020, 12/15/19 18 DTaP, Tdap and Td Vaccines (3 - Td or Tdap) 03/12/2025 03/12/2015, 11/01/1983 PHQ-2 (Physician Quimby) Completed 07/02/2024 Hepatitis A Vaccines Aged Out No long er eligible based on patient's age to complete this topic Meningococcal B Vaccine Aged Out No l onger eligible based on patient's age to complete this topic Meningococcal Vaccine Aged Out No heide svetlana eligible based on patient's age to complete this topic RSV Immunizations Under 20 Months Aged Out No longer eligible based on patient's age to complete this topic Insurance [employer]UE [employer] Care Teams Drupal Developer Relationship Specialty Start Date End Date Niesha Chaney APNP PCP - Obstetrics/Gynecology Nurse Practitioner Women's Health 12/21/20 Mynor Baron MD [address] [place] [address] PCP - General INTERNAL MEDICINE 04/16/24
--- OUTSIDE RECORDS SUMMARY | 2025-02-13 16:31 | XMS_ITS | Encounter Summary ---
Author Organization [facility] Address [address] [place] [address] Care Team Providers Care Joinery Setter Out Name Role Phone Erlinda Alvarado NP Primary Care Provider [phone] Niesha Chaney Unavailable Unavailable Raul Cary MD Primary Care Provider Emerald vailable None, Provider Primary Care Provider Unavaila Mynor Marshall MD Primary Care Provider [phone] Encounter Details Date Type Department Care Team (Late st Contact Info) Description 02/13/2020 Snapfish Message Enc [facility] [place] [address] [place] [address] Erlinda Alvarado, CAL[place] [address] [address] RE: Test Results Social History Tobacco Use [...] Coronavirus / COVID-19? Yes 01/23/2020 1:42 PM BRAILLE AND TALKING BOOKS CLERK documented as of this encounter Plan of Treatment Not on file documented as of this encounter Visit Diagnoses Not on filedocumented in this encounter Care Teams Joinery Setter Out Relationship Specialty Start Date End Date Erlinda Alvarado NP PCP - General NURSE PRACTITIONER 09/09/19 04/01/21 Niesha Chaney APNP PCP - Obstetrics/Gynecology Nurse Practitioner Women's Health 12/21/20 Raul Cary MD PCP - General FAMILY PRACTICE 04/02/21 08/24/21 None, MD Odalys PCP - General 08/25/21 04/15/24 Mynor Baron MD [address] [place] [address] PCP - General INTERNAL MEDICINE 04/16/24 documented as of this encounter
--- OUTSIDE RECORDS SUMMARY | 2025-02-13 16:31 | XMS_ITS | Encounter Summary ---
Author Organization [facility] Address [facility] [place] [address] Care Team Providers Care Clinical Researcher Name Role Phone Erlinda Alvarado NP Primary Care Provider [phone] Niesha Chaney Unavailable Unavailable Raul Cary MD Primary Care Provider Emerald vailable None, Provider Primary Care Provider Unavaila Mynor Marshall MD Primary Care Provider [phone] Encounter Details Date Type Department Care Team (Late st Contact Info) Description 12/14/[address] [facility] Conversion [address] [place] [address] , Generic Conversion, Social History Tobacco Use [...] Rule Out 01/23/2020 01/23/2020 01/26/2020 10:41 AM [facility] documented as of this encounter Care Teams Clinical Researcher Relationship Specialty Start Date End Date Erlinda Alvarado NP PCP - General NURSE PRACTITIONER 09/09/19 04/01/21 Niesha Chaney APNP PCP - Obstetrics/Gynecology Nurse Practitioner Women's Health 12/21/20 Raul Cary MD PCP - General FAMILY PRACTICE 04/02/21 08/24/21 Dusty, MD Odalys PCP - General 08/25/21 04/15/24 Mynor Baron MD [address] [place] [address] PCP - General INTERNAL MEDICINE 04/16/24 documented as of this encounter
--- OUTSIDE RECORDS SUMMARY | 2025-02-13 16:31 | XMS_ITS | Encounter Summary ---
Author Organization [facility] Address [facility] [place] [address] Care Team Providers Care Lighting Equipment Operator Name Role Phone Erlinda Alvarado NP Primary Care Provider [phone] Niesha Chaney Unavailable Unavailable Raul Cary MD Primary Care Provider Emerald vailable None, Provider Primary Care Provider Unavaila Mynor Marshall MD Primary Care Provider [phone] Encounter Details Date Type Department Care Team (Late st Contact Info) Description 07/12/[address] [facility] Conversion [address] [place] [address] , Generic Conversion, Social History Tobacco Use [...] Rule Out 01/23/2020 01/23/2020 01/26/2020 10:41 AM REWEAVER documented as of this encounter Care Teams Lighting Equipment Operator Relationship Specialty Start Date End Date Erlinda Alvarado NP PCP - General NURSE PRACTITIONER 09/09/19 04/01/21 Niesha Chaney APNP PCP - Obstetrics/Gynecology Nurse Practitioner Women's Health 12/21/20 Raul Cary MD PCP - General FAMILY PRACTICE 04/02/21 08/24/21 Dusty, MD Odalys PCP - General 08/25/21 04/15/24 Mynor Baron MD [address] [place] [address] PCP - General INTERNAL MEDICINE 04/16/24 documented as of this encounter
--- OUTSIDE RECORDS SUMMARY | 2025-02-13 16:31 | XMS_ITS | Clinical Summary ---
Author Organization [facility] Address [address] [place] [address] Phone Care Team Providers Care Tax Senior Associate Name Role Phone Wyatt Jansen MD Unavailable [phone] Erlinda Alvarado APRN, EMOTIONAL DISABILITIES TEACHER Primary Care Provider + Allergies Active Allergy [...] Comments Blood Pressure 108/68 03/07/2019 10:19 AM CIAIO LUMITE INJECTOR Pulse 79 03/09/2021 10:56 AM CIAIO LUMITE INJECTOR Temperature 36.7 C (98 F) 09/26/2018 6:52 PM CDT Respiratory Rate 18 07/30/2019 2:59 PM CDT Oxygen Saturation 98% 03/09/2021 10:56 AM CIAIO LUMITE INJECTOR Inhaled Oxygen Concentration - - Weight 63.5 kg (140 lb) 03/07/2019 10:19 AM CIAIO LUMITE INJECTOR Height 167.6 cm (5' 6) 03/09/2021 10:56 AM CIAIO LUMITE INJECTOR Body Mass Index 23.3 03/07/2019 10:19 AM CIAIO LUMITE INJECTOR Plan of Treatment Health Maintenance Due Date Last Done Comments Hepatitis C Virus (HCV) Screening 1973 Hepatitis B Immunization (1 of 3 - 19+ 3-dose series) 1992 Cologuard 2018 Immunochemical Fecal Occult Blood 2018 Pneumococcal Immunization (50+ years) (1 of 1 - PCV) 10/26/2023 Zoster Immunization (1 of 2) 10/26/2023 Influenza Immunization (#1) 2024 02/11/2020, 1 SARS-COV-2 Immunization ( - season) 2024 01/18/2021, 12/28/2020 Colonoscopy 01/08/2028 01/07/2018 Colorectal Cancer Screening 01/08/2028 Respiratory Syncytial Virus (RSV) Immunization (Adult) (1 - 1-dose 75+ series) 2048 DTaP/Tdap/Td Immunization Discontinued 03/12/2015, TdaP Immunization Completed 03/12/2015 Discussion re Starting/Frequency of Mammograms Discontinued 12/21/2020, 10/31/2019, 04/28/2019, Additional history exists Mammogram Discontinued 12/21/2020, 04/12, 04/01/2018 Human Papillomavirus (HPV) Immunization Aged Out No longer eligible based on patient's age to complete this topic Meningococcal Immunization (ACWY) Aged Out No longer eligible based on patient's age to complete this topic Rotavirus Immunization Aged Out No lo nger eligible based on patient's age to complete this topic Medical Devices Implanted Type Area Feed Inspection Supervisor Device Identifier Shelf Expiration Date Model / Serial / Lot Surgicel Powder Implanted:Qty: 1 on 04/18/2017 by Estee Tipton MD at [facility] N/A: [employer] 03/11/2018 [id number] / [id number] / [id number] Description:No charge per Ve nder Rep Procedures Procedure Name Priority Date/Time Associated Diagnosis Comments [facility] SCREENING BILATERAL DIGITAL W CAD W ETIENNE Routine 12/21/2020 11:03 AM CDT Visit for screening mammogram from Last 3 Months or Most Recently Relevant to Health Maintenance Results * [facility] SCREENING BILATERAL DIGITAL W CAD W ETIENNE (12/21/2020 11:03 AM CDT) Anatomical Region Laterality Modality breast Bilateral Mammography 12/21/2020 11:3 3 AM CDT Impressions 12/21/2020 11:33 AM CDT ASSESSMENT: BI-RADS 1; NEGATIVE RECOMMENDATIONS: Yearly screening mammogram of both breasts in 1 year. Given the dense glandular elements supplemental screening with tomosynthesis is indicated. CAD used DICTATION LOCATION: [facility] Signed By: Elo Alfredo M.D. Narrative 12/21/2020 11:33 AM CDT PATIENT HISTORY: Family history of breast cancer in maternal grandmother, breast cancer in maternal aunt. Last mammogram was performed 1 year and 8 months ago. REASON FOR EXAM: screening, asymptomatic. FINDINGS: [facility] SCREENING BILATERAL DIGITAL W CAD W ETIENNE Bilateral MLO, CC, 3DCC, and 3D Etienne ML view(s) were taken. Technologist: Ness Toledo, RT(R) Prior study comparison: October 31, 2019, LEFT DIAG MAMMOGRAM DIGITAL W CAD W ETIENNE, performed at [facility]. October 31, 2019, [facility] US BREAST LIMITIED LEFT, performed at [facility]. April 28, 2019, bilateral ERICH DIAG GAURI DIGITAL W CAD W ETIENNE, performed at [facility]. The breast tissue is heterogeneously dense. No dominant masses or suspicious microcalcifications are seen. No significant changes when compared with prior studies. Erlinda Alvarado APRN, EMOTIONAL DISABILITIES TEACHER IMG MAMMO ORDERABLES Fin al Result from Last 3 Months or Most Recently Relevant to Health Maintenance Insurance [facility] Care Teams Tax Senior Associate Relationship Specialty Start Date End Date Erlinda Alvarado, TRAIN CREW MEMBER, EMOTIONAL DISABILITIES TEACHER [address] [place] [address] PCP - General Certified Nurse Practitioner 10/31/19 Wyatt Jansen MD [address] [place] [address] Supervisor Type Bar And Segment Obstetrics & Gynecology 12/18/17
--- OUTSIDE RECORDS SUMMARY | 2025-02-13 16:31 | XMS_ITS | Encounter Summary ---
Author Organization [facility] Address [facility] [place] [address] Care Team Providers Care General Utility Maintenance Repairer Name Role Phone Erlinda Alvarado NP Primary Care Provider [phone] Niesha Chaney Unavailable Unavailable Raul Cary MD Primary Care Provider Emerald vailable None, Provider Primary Care Provider Unavaila Mynor Marshall MD Primary Care Provider [phone] Encounter Details Date Type Department Care Team (Late st Contact Info) Description 10/31/2020 [employer] Message Enc [facility] Family Medicine - [place] [address] [facility] [place] [address] Jo Elaine NP [address] [place] [address] Question Social History Tobacco Use [...] on filedocumented in this encounter Care Teams General Utility Maintenance Repairer Relationship Specialty Start Date End Date Erlinda Alvarado DOCTOR OF OSTEOPATHY PCP - General NURSE PRACTITIONER 09/09/19 04/01/21 Niesha Chaney APNP PCP - Obstetrics/Gynecology Nurse Practitioner Women's Health 12/21/20 Raul Cary MD PCP - General FAMILY PRACTICE 04/02/21 08/24/21 None, ProviderMD PCP - General 08/25/21 04/15/24 Mynor Baron MD [address] [place] [id number] PCP - General INTERNAL MEDICINE 04/16/24 documented as of this encounter
--- OUTSIDE RECORDS SUMMARY | 2025-02-13 16:31 | XMS_ITS | Encounter Summary ---
Author Organization [facility] Address [facility] [place] [address] Care Team Providers Care Medical Artist Name Role Phone Erlinda Alvarado NP Primary Care Provider [phone] Niesha Chaney Unavailable Unavailable Raul Cary MD Primary Care Provider Emerald vailable None, Provider Primary Care Provider Unavaila Mynor Marshall MD Primary Care Provider Encounter Details Date Type Department Care Team (Late st Contact Info) Description 10/29/2020 My[employer]elly HQt Message Enc [facility] Family Medicine - [place] [address] [place] [address] Jo Elaine NP [address] [place] [address] RE: Follow Up/Update Social History [...] on filedocumented in this encounter Care Teams Medical Artist Relationship Specialty Start Date End Date Erlinda Alvarado, LIBRARY HISTORIAN PCP - General NURSE PRACTITIONER 09/09/19 04/01/21 Niesha Chaney APNP PCP - Obstetrics/Gynecology Nurse Practitioner Women's Health 12/21/20 Raul Cary MD PCP - General FAMILY PRACTICE 04/02/21 08/24/21 None, MD Odalys PCP - General 08/25/21 04/15/24 Mynor Baron MD [address] [place] [id number] PCP - General INTERNAL MEDICINE 04/16/24 documented as of this encounter
--- OUTSIDE RECORDS SUMMARY | 2025-02-13 16:31 | XMS_ITS | Encounter Summary ---
Author Organization [facility] Address [facility] [place] [address] Care Team Providers Care Wrapper Opener Name Role Phone Erlinda Alvarado NP Primary Care Provider [phone] Niesha Chaney Unavailable Unavailable Raul Cary MD Primary Care Provider Emerald vailable None, Provider Primary Care Provider Unavaila Mynor Marshall MD Primary Care Provider [phone] Encounter Details Date Type Department Care Team (Latest Contact Info) Description 04/03/2017 Abstract 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
--- OUTSIDE RECORDS SUMMARY | 2025-02-13 16:31 | XMS_ITS | Encounter Summary ---
Author Organization [facility] Address [facility] [place] [address] Care Team Providers Care Branch Associate Name Role Phone Erlinda Alvarado NP Primary Care Provider [phone] Niesha Chaney Unavailable Unavailable Raul Cary MD Primary Care Provider Emerald vailable None, Provider Primary Care Provider Unavaila Mynor Marshall MD Primary Care Provider [phone] Encounter Details Date Type Department Care Team (Late st Contact Info) Description 02/16/[address] 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
[2025-02-13 16:32] VITALS: BP 117/79; PULSE 82; RESP 16; TEMP 36.2; O2SAT 100
--- NOTE | 2025-02-13 17:47 | ED_ITS ---
HPI - Abdominal Pain General Chief Complaint: Abdominal Pain Stated Complaint: abd pain Time Seen by Provider: 02/13/25 17:02 History of Present Illness HPI narrative: Patient is a 49-year-old female who presents to the ER with generalized abdominal pain this been present for the past week. She reports the pain is generalized but mostly located above her belly button. Patient reports food makes the pain worse. She reports she still has her gallbladder and appendix and does not take G LP 1 medications. Patient describes the pain as ?excruciating and endorses intermittent nausea and vomiting associated with it. She endorses a history of hysterectomy, kidney stones, GERD, and frequent UTIs. Patient denies any chest pain, shortness of breath, acute back pain or recent fevers. Related Data Home Medications ?Medication ?Instructions ?Recorded ?Confirmed ?Last Taken ?Type Saccharomyces boulardii 250 mg 250 mg PO BID 06/24/21 09/01/21 Unknown History capsule (Daily Probiotic (S. boulardii)) fluticasone propionate 50 1 spray intranasal BID 06/2409/01/21 Unknown History mcg/actuation nasal spray,suspension levocetirizine 5 mg tablet (Xyzal) 5 mg PO DAILY 06/2409/01/21 Unknown History Allergies Allergy/AdvReac Type Severity Reaction Status Date / Time No Known Allergies Allergy Verified 02/13/25 16:36 Review of Systems 2 Review of Systems: All systems reviewed & are unremarkable except as noted in HPI and below PMFSH Past Medical History Medical History Seasonal allergies Surgical History Surgical History H/O section H/O hysterectomy with oophorectomy 2018 Family History Family History Father Parkinsons disease Malignant neoplasm of prostate Grandparent Diabetes mellitus Depression Mother Endometrial cancer Cervical cancer Social History Social History Smoking status: Never smoker Alcohol intake: never Substance use: never Living arrangements: with family Additional living arrangements comments: Occupation/Education: occupation 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 HEAD: Normocephalic, atraumatic. NECK: Supple. No adenopathy, no masses. RESPIRATORY: Airway patent, respirations nonlabored. Clear to auscultation bilaterally, no rales, rhonchi, wheezing. CARDIOVASCULAR: Regular rate and rhythm without murmurs, rubs, or gallops. Peripheral pulses 2+ and equal bilaterally. ABDOMINAL: Soft, generalized tenderness, nondistended, no hepatosplenomegaly. Normoactive BS. Negative Avelar sign. MUSCULOSKELETAL: Moves all extremities. Strength/ROM intact without gross deformities. SKIN: Warm, dry, normal color. No rashes. NEURO: A&O X3. Speech clear. Cranial nerves II-XII intact. No ataxic movements. PSYCHIATRIC: Appropriate mood and affect. Normal interaction. Course Vital Signs Vital signs: Vital Signs Temperature 36.2 C L 02/13/25 16:32 Pulse Rate 82 02/13/25 16:32 Respiratory Rate 16 02/13/25 16:32 Blood Pressure 117/79 02/13/25 16:32 Pulse Oximetry 100 02/13/25 16:32 Temperature 36.2 C L 02/13/25 16:32 Pulse Rate 73 02/13/25 17:52 Respiratory Rate 18 02/13/25 17:52 Blood Pressure 109/71 02/13/25 17:52 Pulse Oximetry 99 02/13/25 17:52 [facility] Narrative Medical decision making narrative: Patient is a 49-year-old female who presents to the ER with generalized abdominal pain this been present for the past week. She reports the pain is generalized but mostly located above her belly button. Patient reports food makes the pain worse. She reports she still has her gallbladder and appendix and does not take GLP 1 medications. Patient describes the pain as ?excruciating and endorses intermittent nausea and vomiting associated with it. She endorses a history of hysterectomy, kidney stones, GERD, and frequent UTIs. Patient denies any chest pain, shortness of breath, acute back pain or recent fevers. Labs Ordered:CBC, CMP, lipase, UDS, UA Imaging Ordered: CT abdomen pelvis Medications Ordered: 1 L normal saline IV bolus, patient declined other medication Results: Pt's CT scan indicates Lung bases unremarkable. Heart size normal. No significant pleural or pericardial effusion. Small low-density lesion right hepatic lobe, most likely cysts. Fatty infiltration of the liver. The spleen, pancreas, adrenal glands and kidneys are unremarkable. Nonobstructive bowel gas pattern. There are changes of previous appendectomy. No abnormal pelvic masses or fluid collections. No significant vascular abnormality. Gallbladder is present. No lymphadenopathy. No free air or free fluid. Moderate lumbar spondylosis at L4-5 with grade 1 degenerative spondylolisthesis. Diagnosis: Gastric reflux disorder, gastroenteritis Consults: gastroenterology, outpatient Patient Education/Shared MDM: Results of lab work and imaging shared with patient. She reports she has not had any abdominal pain since being in the ER. Patient provided with ice water and salty crackers to see if the pain is reproducible. She reports the food made her belch and she feels a slight increase in discomfort in her upper belly. Patient strongly advised to maintain hydration status upon discharge and follow-up with Gastroenterology for further evaluation. She will be discharged home with a prescription for Bentyl. Patient is requesting treatment for GERD that are natural. Strict return precautions provided. Patient verbalized understanding and is in agreement with plan. Vital signs stable at time of discharge. All questions answered. Differential Diagnosis Differential Diagnosis: cholelithiasis, urinary tract infection, small-bowel obstruction, constipation, gastroenteritis, GERD Lab Data [facility] Lab Attestation statement: I personally reviewed the patient's lab results. 02/13/25 17:48 02/13/25 17:48 Labs: Lab Results 02/13/25 Range/Units 17:48 WBC 10.2 H (4.5-10.0) K/mm3 RBC 4.17 L (4.2-5.4) M/mm3 Hgb 13.0 (12.0-15.0) g/dL Hct 39.3 (37.0-47.0) % MCV 94.2 (80-100) fl MCH 31.2 (26-34) pg MCHC 33.1 (32-36) g/dl RDW 13.0 (11.5-14.5) % Plt Count 248 (150-375) k/mm3 MPV 10.2 (7.4-10.4) fl Immature Gran % (Auto) 0.3 (0-0.5) % Neut % (Auto) 57.2 (45.5-73.1) % Lymph % (Auto) 23.3 (18.3-44.2) % [place] % (Auto) 5.8 (2.6-8.5) % Eos % (Auto) 12.7 H (0-4.4) % Baso % (Auto) 0.7 (0.2-1.2) % Lymph # (Auto) 2.36 (0.9-3.2) K/mm3 [place] # (Auto) 0.6 (0.1-0.6) K/mm3 Eos # (Auto) 1.3 H (0-0.3) K/mm3 Baso # (Auto) 0.1 (0.0-0.1) K/mm3 Abs Immat Gran (auto) 0.03 (0.00-0.031) K/mm3 Absolute Neuts (auto) 5.8 (1.3-6.7) K/mm3 Absolute Nucleated RBC 0.000 (0.0-0.012) K/mm3 Nucleated RBC % 0.0 (0.0-0.2) % Sodium 140 (137-145) mmol/L Potassium 3.8 (3.4-5.0) mmol/L Chloride 104 (98-107) mmol/L Carbon Dioxide 28 (22-30) mmol/L Anion Gap 8 (4-12) mmol/L BUN 13 D (7-17) mg/dL Creatinine 0.80 (0.7-1.0) mg/dL Estim Creat Clear Calc 65 ml/min Estimated GFR > 60 (59 - ) Glucose 94 (65-110) mg/dL Calcium 9.6 (8.4-10.2) mg/dL Total Bilirubin 0.4 (0.2-1.3) mg/dL AST 35 (14-36) U/L ALT 25 (6-35) U/L Alkaline Phosphatase 92 (38-126) U/L Total Protein 8.9 H (6.3-8.2) g/dL Albumin 4.9 (3.5-5.1) g/dL Lipase 132 (23-300) U/L Urine Color Yellow (Yellow) Urine Appearance Clear (Clear) Urine pH 7.5 (5.0-9.0) Ur Specific [place] 1.002 (1.001-1.035) Urine Protein Negative (Negative) mg/dL Urine Glucose (UA) Negative (Negative) mg/dL Urine Ketones Negative (Negative) mg/dL Ur Blood (Man) Trace (Negative) Urine Nitrate Negative (Negative) Urine Bilirubin Negative (Negative) Urine Urobilinogen 0.2 (<2.0) mg/dL Leukocyte Esterase Rfl Negative (Negative) SUELLEN/UL Urine RBC 0-2 (0-2) /hpf Urine WBC 0-5 (0-3) /hpf Ur Squamous Epith Cells None seen (Few) /hpf Urine Bacteria None seen /hpf Urine Casts 0-2 Urine Opiates Screen Negative (Negative) Urine Methadone Screen Negative (Negative) Ur Barbiturates Screen Negative (Negative) Ur Phencyclidine Scrn Negative (Negative) Ur Amphetamine Screen Negative (Negative) U Benzodiazepines Scrn Negative (Negative) Urine Cocaine Screen Negative (Negative) U Cannabinoids Screen Negative (Negative) Imaging Data Attestation: I personally reviewed and interpreted this imaging study as follows: Radiologist's impression: ITS Impressions Abdomen/Pelvis CT 02/13/25 18:22 IMPRESSION: 1. No acute abdominal abnormality. Discharge Plan Discharge Clinical Impression: Gastroenteritis, GERD (gastroesophageal reflux disease) Patient Disposition: Home Condition: Stable Instructions: Antibiotic Form, Diet for Stomach Ulcers and Gastritis (ED) Additional Instructions: Please return to the ER with any worsening symptoms. Follow-up with gastroenterology as soon as possible for further evaluation and treatment. Take all medications as prescribed, including regularly scheduled medications. You may try taking Pepcid or Tums and see if this helps relieve your symptoms. More natural options include tameka and apple cider vinegar. Patient Language: [place] Prescriptions: No Action levocetirizine [Xyzal] 5 mg tablet 5 mg PO DAILY Saccharomyces boulardii [Daily Probiotic (S. boulardii)] 250 mg capsule 250 mg PO BID fluticasone propionate 50 mcg/actuation spray,suspension 1 spray intranasal BID Rx Instructions: administer into each nostril methylprednisolone [Medrol ([place])] 4 mg tablets,dose pack See Rx Instructions PO PER PKG DIR Qty: 21 0RF Rx Instructions: PO PER PKG DIR sulfamethoxazole-trimethoprim 800-160 mg tablet 1 tablet PO Q12H 14 Days Qty: 27 0RF Rx Instructions: start 12/6 PM (received first dose in ED 12/6 AM) acetaminophen 500 mg capsule 1,000 mg PO Q6H PRN (Reason: pain) Qty: 20 0RF acetaminophen 500 mg capsule 1,000 mg PO Q6H PRN (Reason: pain) Qty: 30 0RF sulfamethoxazole-trimethoprim [Bactrim DS] 800-160 mg tablet 1 tablet PO Q12H 14 Days Qty: 27 0RF Rx Instructions: Received 1st dose in the emergency department 02/15/2024 a.m. Follow-up/Referrals: Mynor Baron MD [Primary Care Provider, Internal Medicine] Yunior Mejia MD [Physician, Gastroenterology] Time of Disposition: 21:17
[2025-02-13 17:52] VITALS: BP 109/71; PULSE 73; RESP 18; O2SAT 99
[2025-02-13 17:55] LABS: Hematocrit 39.3 % (37.0-47.0); Hemoglobin 13.0 g/dL (12.0-15.0); Immature Granulocyte Percent A 0.3 % (0-0.5); Lymphocytes Absolute Auto 2.36 K/mm3 (0.9-3.2); Mean Corpuscular HGB Conc 33.1 g/dl (32-36); Mean Corpuscular Hemoglobin 31.2 pg (26-34); Mean Corpuscular Volume 94.2 fl (80-100); Nucleated Red Blood Cells Absolute Auto 0.000 K/mm3 (0.0-0.012); Nucleated Red Blood Cells Perc 0.0 % (0.0-0.2); Platelet Count Result 248 k/mm3 (150-375); Red Blood Count 4.17 M/mm3 (4.2-5.4); White Blood Count 10.2 K/mm3 (4.5-10.0)
--- NOTE | 2025-02-13 17:56 | PC.NURSE ---
Pt had hysterectomy, bedside test cancelled
[2025-02-13 18:05] LABS: Alanine Aminotransferase 25 U/L (6-35); Albumin Level 4.9 g/dL (3.5-5.1); Alkaline Phosphatase 92 U/L (38-126); Anion Gap 8 mmol/L (4-12); Aspartate Amino Transferase 35 U/L (14-36); Bilirubin,Total 0.4 mg/dL (0.2-1.3); Blood Urea Nitrogen 13 mg/dL (7-17); Calcium 9.6 mg/dL (8.4-10.2); Carbon Dioxide 28 mmol/L (22-30); Chloride 104 mmol/L (98-107); Estimated CRCL calculation 65 ml/min; Estimated Glomerular Filt Rate > 60; Glucose 94 mg/dL (65-110); Lipase 132 U/L (23-300); Potassium 3.8 mmol/L (3.4-5.0); Sodium 140 mmol/L (137-145); Total Protein 8.9 g/dL (6.3-8.2)
[2025-02-13 18:13] LABS: Cannabinoid Screen Urine Negative (Negative)
[2025-02-13 18:38] LABS: Add Urine Microscopic? YES; Appearance Urine Clear (Clear); Glucose Urine UA Negative (Negative); Leukocyte Esterase Ur Negative LEU/UL (Negative); Nitrate Urine Negative (Negative); Non Pathogenic Casts 0-2; Specific Grav Ur 1.002 (1.001-1.035)
[2025-02-13] MEDS: SODIUM CHLORIDE 0.9% IV 1,000 ML 999 ML IV CONT (18:45)
[2025-02-13 21:58] VITALS: BP 128/78; PULSE 80; RESP 18; TEMP 36.7; O2SAT 100
== END 2025-02-13 22:01 | disposition home or self-care (01) ==
PROVIDERS: Emergency Provider Registered Nurse; PCP Internal Medicine
DX: K52.9 Noninfective gastroenteritis and colitis, unspecified (principal); K21.9 Gastro-esophageal reflux disease without esophagitis; Z87.442 Personal history of urinary calculi; Z90.710 Acquired absence of both cervix and uterus
CPT/HCPCS: 36415; 74177; 80053; 80307; 81001; 83690; 85025; 96360; 99284; J7030; Q9967